=== PATIENT | female | born 1980 | race Caucasian/White ===

== ENCOUNTER 2017-09-19 07:28 | Emergency (ER) | payer MEDICARE ==
[~2017-09-19] VITALS: Ht 175.3 cm; Wt 67.1 kg
[~2017-09-19 07:28] MED LIST: MINOCYCLINE 10100 MG PO; MOTRIN 600MG.600 MG PO; NAPROSYN500 M1 PO; NEURONTIN 300M300 MG PO; PERCOCET1 TAB PO; SEPTRA DS 800 M1 TAB PO; TRAMADOL50 M1 PO; VALIUM5 MG PO; ZOFRAN ODT4 MG PO
--- OUTSIDE RECORDS SUMMARY | 2017-09-19 07:53 | External Medical Summary Rpt | CCD ---
Author Author , ROSANNA MARTE Address Unknown Phone [email or web address] Purpose Continuity of Care Document - 05-16-2012 through 2016 Results Labs Lab Lab Date Result Refere Interp Status Commen Order Detail nces retati t Range on Lipase measurement (09-17-2017 13:15) Lipase = 113 73-393 complet measure 017 U/L ed ment 13:15 Comprehensive metabolic panel (09-17-2017 13:15) ALT 09-17-2 = 13 12-78 complet (SGPT) 017 U/L ed ser/tin 13:15 s Serum = 137 136-145 complet sodium 017 mmoL/L ed measure 13:15 ment Serum = 3.9 3.5-5.1 complet potassi 017 mmoL/L ed um 13:15 measure ment Serum 2 = 4.8 1.3-3.2 complet globuli 017 gm/dL ed n 13:15 measure ment (mass/v olume) Estimat 2 = 62 59- complet ed 017 ML/MIN ed glomeru 13:15 lar filtrat ion rate (GF Estimat = 80 50-200 complet ion of 017 ML/MIN ed creatin 13:15 ine renal clearan ce Serum 2 = 1.0 0.55-1. complet or 017 mg/dL 02 ed plasma 13:15 creatin ine measure ment ( Carbon = 27 21.0-32 complet dioxide 017 mmoL/L .0 ed 13:15 measure ment Serum 2 = 100 98-107 complet or 017 mmoL/L ed plasma 13:15 chlorid e measure ment (mo Serum 2 = 10.0 8.5-10. complet or 017 mg/dL 1 ed plasma 13:15 calcium measure ment (mas Serum 2 = 12 7-18 complet or 017 mg/dL ed plasma 13:15 urea nitroge n measure men Serum = 0.5 0.2-1.0 complet or 017 mg/dL ed plasma 13:15 total bilirub in measure m Serum = 107 46-116 complet or 017 U/L ed plasma 13:15 alkalin e phospha tase nando Serum = 4.5 3.4-5.0 complet or 017 gm/dL ed plasma 13:15 albumin measure ment (mas Serum = 0.9 1.1-1.8 complet or 017 ed plasma 13:15 albumin /globul in mass ra Serum = 10 15-37 complet or 017 U/L ed plasma 13:15 asparta te aminotr ansfera Serum = 108 74-106 complet or 017 mg/dL ed plasma 13:15 glucose measure ment (mas Protein = 9.3 6.4-8.2 complet total 017 gm/dL ed ser/tin 13:15 s CBC w auto diff (09-17-2017 13:15) Mean = 29.4 27-31.2 complet corpusc 017 pg ed ular 13:15 hemoglo bin (MCH) determ Lymphoc = 17.9 10-50.0 complet yte 017 % ed count, 13:15 blood, automat ed Absolut = 1.9 0.7-4.5 complet e 017 K/mm3 ed lymphoc 13:15 yte count Blood = 15.4 12.2-16 complet hemoglo 017 g/dL .2 ed bin 13:15 measure ment (mass/v olum Blood = 47.5 37.0-47 complet hematoc 017 % .0 ed rit 13:15 (volume fractio n) Granulo = 77.2 37.0-80 complet cyte 017 % .0 ed percent 13:15 age Blood = 8.3 1.8-7.8 complet granulo 017 K/mm3 ed cytes 13:15 automat ed count (numb Automat = 0.5 % 0.1-12. complet ed 017 0 ed blood 13:15 eosinop hils/10 0 leukocy t Automat 09-17-2 = 0.1 0.0-0.4 complet ed 017 K/mm3 ed blood 13:15 eosinop hil count Baso % 09-17-2 = 0.5 % 0.1-2.0 complet 017 ed 13:15 Blood 09-17-2 = 10.7 4.8-10. complet leukocy 017 K/MM3 8 ed lance 13:15 count (number /volume ) Automat 09-17-2 = 12.9 11.5-17 complet ed 017 % .5 ed erythro 13:15 cyte distrib ution width Red 09-17-2 = 5.25 4.2-5.4 complet blood 017 M/mm3 ed cell 13:15 count Blood = 376 142-424 complet platele 017 K/mm3 ed t count 13:15 Automat 2 = 7.8 7.4-10. complet ed 017 fl 4 ed blood 13:15 platele t mean volume nando Banks % = 3.8 % 1.7-9.3 complet 017 ed 13:15 Absolut 2 = 0.4 0.1-1.0 complet e 017 K/mm3 ed monocyt 13:15 e count Automat = 90.5 82.2-97 complet ed 017 fl .8 ed erythro 13:15 cyte mean corpusc ular v Automat = 32.5 31.8-35 complet ed 017 g/dl .4 ed erythro 13:15 cyte mean corpusc ular h Automat 2 = 0.1 0-0.2 complet ed 017 K/MM3 ed blood 13:15 basophi l count (count/ vo HCG Preg Ur Ql (03-30-2017 18:10) B-HCG [id number] Negativ complet Preg Ur 017 09 e ed Ql 18:10 Negativ e SCT Bas Metab 2000 Pnl SerPl (03-30-2017 05:23) Comment: [employer] Guidelines Comment: Comment: Stage Description GFR Comment: 1 Normal or High 90+ Comment: 2 Mild decrease 60-89 Comment: 3 Moderate decrease 30-59 Comment: 4 Severe decrease 15-29 Comment: 5 Kidney failure <15 Anion 03-2 11.0 3.0-11. complet Gap3 017 mmol/L 0 ed SerPl-s 05:23 Cnc BUN/Cre 03-2 15.7 7.0-25. complet at 017 0 ed SerPl 05:23 GFR/BSA 03- 94 >60 complet .pred 017 mL/min/ ed SerPl 05:23 1.73 MDRD-Ar VRat Calcium 03 10.6 8.7-10. complet 017 mg/dL 4 ed XXX-sCn 05:23 c CO2 03-2 25.0 20.0-31 complet SerPl-s 017 mmol/L .0 ed Cnc 05:23 Chlorid 03- 102 99-109 complet e 017 mmol/L ed SerPl-s 05:23 Cnc Potassi 03-30-2 4.5 3.5-5.5 complet um 017 mmol/L ed Bld-sCn 05:23 c Sodium 03- 138 132-146 complet Bld-sCn 017 mmol/L ed c 05:23 Creat 03-2 0.70 0.60-1. complet Bld-mCn 017 mg/dL 30 ed c 05:23 BUN 03-2 11 9-23 complet Bld-mCn 017 mg/dL ed c 05:23 Glucose 03-2 101 70-100 complet 017 mg/dL ed Bld-mCn 05:23 c CBC W Diff pnl,unspecified Bld (03-30-2017 05:23) Imm 05-03-2 0.00 0.00-0. complet Granulo 017 10*3/mm 03 ed cytes # 05:23 3 Bld Basophi 0503-2 0.07 0.00-0. complet ls # 017 10*3/mm 20 ed Bld 05:23 3 Auto Eosinop 05-03-2 0.50 0.10-0. complet hil # 017 10*3/mm 30 ed Bld 05:23 3 Auto Monocyt 05-03-2 0.52 0.00-1. complet es # 017 10*3/mm 00 ed Bld 05:23 3 Auto Lymphoc -03-2 3.27 0.60-4. complet ytes # 017 10*3/mm 80 ed Bld 05:23 3 Auto Neutrop -03-2 2.92 1.50-8. complet hils # 017 10*3/mm 30 ed Bld 05:23 3 Auto Imm 03-2 0.0 % 0.0-0.6 complet Granulo 017 ed cytes/l 05:23 euk NFr Bld Basophi 03-30-2 1.0 % 0.0-1.0 complet ls/leuk 017 ed NFr 05:23 Bld Auto Eosinop 03-2 6.9 % 0.0-3.0 complet hil/bev 017 ed k NFr 05:23 Bld Auto Monocyt 03-2 7.1 % 0.0-12. complet es/leuk 017 0 ed NFr 05:23 Bld Auto Lymphoc 03-30-2 44.9 % 24.0-44 complet ytes/le 017 .0 ed uk NFr 05:23 Bld Auto Neutrop 03-30-2 40.1 % 41.0-71 complet hils/le 017 .0 ed uk NFr 05:23 Bld Auto Platele 03-30-2 325 150-450 complet t # Bld 017 10*3/mm ed Auto 05:23 3 PMV Bld 03-30-2 10.3 fL 6.0-12. complet Auto 017 0 ed 05:23 RDW RBC 03-2 52.0 fl 37.0-54 complet Auto 017 .0 ed 05:23 RDW RBC 03-2 14.8 % 11.3-14 complet 017 .5 ed Auto-Rt 05:23 o MCHC 03-2 31.7 32.0-36 complet RBC 017 g/dL .0 ed Auto-mC 05:23 nc MCH RBC 03-2 30.2 pg 27.0-31 complet Qn 017 .0 ed Auto 05:23 MCV RBC -03-2 95.0 fL 80.0-99 complet Auto 017 .0 ed 05:23 Hct VFr 03-2 47.9 % 34.5-44 complet Bld 017 .0 ed Auto 05:23 Hgb -03-2 15.2 11.5-15 complet Bld-mCn 017 g/dL .5 ed c 05:23 RBC # 05-03-2 5.04 3.89-5. complet Bld 017 10*6/mm 14 ed Auto 05:23 3 WBC 05-03-2 7.28 3.50-10 complet nRBC 017 10*3/mm .80 ed cor # 05:23 3 Bld Procalcitonin SerPl-mCnc (03-26-2017 07:15) Comment: As a Marker for Sepsis (Non-Neonates): Comment: 1. <0.5 ng/mL represents a low risk of severe sepsis and/or septic shock. Comment: 2. >2 ng/mL represents a high risk of severe sepsis and/or septic shock. Comment: Comment: As a Marker for Lower Respiratory Tract Infections that require antibiotic therapy: Comment: Comment: PCT on Admission Antibiotic Therapy 6-12 Hrs later Comment: > 0.5 Strongly Recommended Comment: >0.25 - <0.5 Recommended Comment: 0.1 - 0.25 Discouraged Remeasure/reassess PCT Comment: <0.1 Strongly Discouraged Remeasure/reassess PCT Comment: PCT values of < 0.5 ng/mL do not exclude an infection, because localized infections (without systemic signs) may be associated with such low concentrations, or a systemic infection in its initial stages (< 6 hours). Furthermore, increased PCT can occ Procalc < 0.05 complet itonin 017 ng/mL ed SerPl-m 07:15 Cnc Bas Metab 2000 Pnl SerPl (03-26-2017 07:15) Comment: [employer] Guidelines Comment: Comment: Stage Description GFR Comment: 1 Normal or High 90+ Comment: 2 Mild decrease 60-89 Comment: 3 Moderate decrease 30-59 Comment: 4 Severe decrease 15-29 Comment: 5 Kidney failure <15 BUN 6 mg/dL 9-23 complet Bld-mCn 017 ed c 07:15 Anion 5.0 3.0-11. complet Gap3 017 mmol/L 0 ed SerPl-s 07:15 Cnc BUN/Cre 10.0 7.0-25. complet at 017 0 ed SerPl 07:15 GFR/BSA 112 >60 complet .pred 017 mL/min/ ed SerPl 07:15 1.73 MDRD-Ar VRat Calcium 04-29-2 9.7 8.7-10. complet 017 mg/dL 4 ed XXX-sCn 07:15 c CO2 03-26-2 28.0 20.0-31 complet SerPl-s 017 mmol/L .0 ed Cnc 07:15 Chlorid 03-26-2 107 99-109 complet e 017 mmol/L ed SerPl-s 07:15 Cnc Potassi 2 4.1 3.5-5.5 complet um 017 mmol/L ed Bld-sCn 07:15 c Sodium 03-26-2 140 132-146 complet Bld-sCn 017 mmol/L ed c 07:15 Creat 03-26-2 0.60 0.60-1. complet Bld-mCn 017 mg/dL 30 ed c 07:15 Glucose 03-26-2 91 70-100 complet 017 mg/dL ed Bld-mCn 07:15 c CBC W Diff pnl,unspecified Bld (03-26-2017 07:14) Imm -29-2 0.00 0.00-0. complet Granulo 017 10*3/mm 03 ed cytes # 07:14 3 Bld Basophi 29-2 0.04 0.00-0. complet ls # 017 10*3/mm 20 ed Bld 07:14 3 Auto Eosinop 29-2 0.31 0.10-0. complet hil # 017 10*3/mm 30 ed Bld 07:14 3 Auto Monocyt 29-2 0.56 0.00-1. complet es # 017 10*3/mm 00 ed Bld 07:14 3 Auto Lymphoc 03-26-2 2.76 0.60-4. complet ytes # 017 10*3/mm 80 ed Bld 07:14 3 Auto Neutrop -29-2 3.32 1.50-8. complet hils # 017 10*3/mm 30 ed Bld 07:14 3 Auto Imm -29-2 0.0 % 0.0-0.6 complet Granulo 017 ed cytes/l 07:14 euk NFr Bld Basophi -29-2 0.6 % 0.0-1.0 complet ls/leuk 017 ed NFr 07:14 Bld Auto Eosinop 29-2 4.4 % 0.0-3.0 complet hil/bev 017 ed k NFr 07:14 Bld Auto Monocyt 8.0 % 0.0-12. complet es/leuk 017 0 ed NFr 07:14 Bld Auto Lymphoc 39.5 % 24.0-44 complet ytes/le 017 .0 ed uk NFr 07:14 Bld Auto Neutrop 47.5 % 41.0-71 complet hils/le 017 .0 ed uk NFr 07:14 Bld Auto Platele 298 150-450 complet t # Bld 017 10*3/mm ed Auto 07:14 3 PMV Bld 10.2 fL 6.0-12. complet Auto 017 0 ed 07:14 RDW RBC 54.0 fl 37.0-54 complet Auto 017 .0 ed 07:14 RDW RBC 15.4 % 11.3-14 complet 017 .5 ed Auto-Rt 07:14 o MCHC 31.2 32.0-36 complet RBC 017 g/dL .0 ed Auto-mC 07:14 nc MCH RBC 29.7 pg 27.0-31 complet Qn 017 .0 ed Auto 07:14 MCV RBC 95.2 fL 80.0-99 complet Auto 017 .0 ed 07:14 Hct VFr 39.8 % 34.5-44 complet Bld 017 .0 ed Auto 07:14 Hgb 03-26- 12.4 11.5-15 complet Bld-mCn 017 g/dL .5 ed c 07:14 RBC # 03-26-2 4.18 3.89-5. complet Bld 017 10*6/mm 14 ed Auto 07:14 3 WBC 03-26- 6.99 3.50-10 complet nRBC 017 10*3/mm .80 ed cor # 07:14 3 Bld UA Microscopic Pnl # Ur Auto (03-25-2017 23:15) Ref lab Automat complet test 017 ed ed method 23:15 Microsc opy Hyaline 0-6 0-6 complet Casts 017 /LPF ed Ur Ql 23:15 Auto Squamou 3-6 None complet s 017 /HPF Seen, ed #/area 23:15 0-2 UrnS HPF Bacteri [id number] None complet a Ur Ql 017 00 Not Seen, ed Auto 23:15 detecte Trace d SCT /HPF WBC Ur 0-2 None complet Ql Auto 017 /HPF Seen ed 23:15 RBC # 3-6 None complet Ur 017 /HPF Seen, ed 23:15 0-2 Bacteria Bld Cult (03-25-2017 20:19) Bacteri No complet a XXX 017 growth ed Aerobe 20:19 at 5 Cult days ESR Bld Qn (03-25-2017 14:20) ESR Bld 25 0-20 complet Qn 017 mm/hr ed 14:20 Comp Metab 1998 Pnl SerPl (03-25-2017 14:20) Comment: [employer] Guidelines Comment: Comment: Stage Description GFR Comment: 1 Normal or High 90+ Comment: 2 Mild decrease 60-89 Comment: 3 Moderate decrease 30-59 Comment: 4 Severe decrease 15-29 Comment: 5 Kidney failure <15 Anion 9.0 3.0-11. complet Gap3 017 mmol/L 0 ed SerPl-s 14:20 Cnc BUN/Cre 10.0 7.0-25. complet at 017 0 ed SerPl 14:20 Albumin 1.3 1.5-2.5 complet /Glob 017 g/dL ed SerPl 14:20 Globuli 3.8 complet n Ur 017 gm/dL ed Elph-mC 14:20 nc GFR/BSA 94 >60 complet .pred 017 mL/min/ ed SerPl 14:20 1.73 MDRD-Ar VRat Bilirub 0.6 0.3-1.2 complet 017 mg/dL ed SerPl-m 14:20 Cnc ALP 86 U/L 25-100 complet SerPl-c 017 ed Cnc 14:20 AST 25 U/L 0-33 complet SerPl-c 017 ed Cnc 14:20 ALT 20 U/L 7-40 complet SerPl w 017 ed 14:20 P-5'-P- cCnc Albumin 5.00 3.20-4. complet 017 g/dL 80 ed SerPl-m 14:20 Cnc Prot 8.8 5.7-8.2 complet SerPl-m 017 g/dL ed Cnc 14:20 Calcium 10.9 8.7-10. complet 017 mg/dL 4 ed XXX-sCn 14:20 c CO2 23.0 20.0-31 complet SerPl-s 017 mmol/L .0 ed Cnc 14:20 Chlorid 104 99-109 complet e 017 mmol/L ed SerPl-s 14:20 Cnc Potassi 3.3 3.5-5.5 complet um 017 mmol/L ed Bld-sCn 14:20 c Sodium 136 132-146 complet Bld-sCn 017 mmol/L ed c 14:20 Creat 2 0.70 0.60-1. complet Bld-mCn 017 mg/dL 30 ed c 14:20 BUN 7 mg/dL 9-23 complet Bld-mCn 017 ed c 14:20 Glucose 92 70-100 complet 017 mg/dL ed Bld-mCn 14:20 c CRP SerPl-mCnc (03-25-2017 14:20) CRP 03-25-2 0.31 0.00-1. complet SerPl-m 017 mg/dL 00 ed Cnc 14:20 CBC W Diff pnl,unspecified Bld (03-25-2017 14:20) Imm 03-25-2 0.03 0.00-0. complet Granulo 017 10*3/mm 03 ed cytes # 14:20 3 Bld Basophi 03-25-2 0.07 0.00-0. complet ls # 017 10*3/mm 20 ed Bld 14:20 3 Auto Eosinop 03-25-2 0.08 0.10-0. complet hil # 017 10*3/mm 30 ed Bld 14:20 3 Auto Monocyt 03-25-2 0.67 0.00-1. complet es # 017 10*3/mm 00 ed Bld 14:20 3 Auto Lymphoc 03-25-2 2.64 0.60-4. complet ytes # 017 10*3/mm 80 ed Bld 14:20 3 Auto Neutrop 03-25-2 12.71 1.50-8. complet hils # 017 10*3/mm 30 ed Bld 14:20 3 Auto Imm 03-25-2 0.2 % 0.0-0.6 complet Granulo 017 ed cytes/l 14:20 euk NFr Bld Basophi 0.4 % 0.0-1.0 complet ls/leuk 017 ed NFr 14:20 Bld Auto Eosinop 0.5 % 0.0-3.0 complet hil/bev 017 ed k NFr 14:20 Bld Auto Monocyt 4.1 % 0.0-12. complet es/leuk 017 0 ed NFr 14:20 Bld Auto Lymphoc 16.3 % 24.0-44 complet ytes/le 017 .0 ed uk NFr 14:20 Bld Auto Neutrop 78.5 % 41.0-71 complet hils/le 017 .0 ed uk NFr 14:20 Bld Auto Platele 382 150-450 complet t # Bld 017 10*3/mm ed Auto 14:20 3 PMV Bld 9.9 fL 6.0-12. complet Auto 017 0 ed 14:20 RDW RBC 51.0 fl 37.0-54 complet Auto 017 .0 ed 14:20 RDW RBC 15.0 % 11.3-14 complet 017 .5 ed Auto-Rt 14:20 o MCHC 32.9 32.0-36 complet RBC 017 g/dL .0 ed Auto-mC 14:20 nc MCH RBC 30.5 pg 27.0-31 complet Qn 017 .0 ed Auto 14:20 MCV RBC 92.9 fL 80.0-99 complet Auto 017 .0 ed 14:20 Hct VFr 42.9 % 34.5-44 complet Bld 017 .0 ed Auto 14:20 Hgb 14.1 11.5-15 complet Bld-mCn 017 g/dL .5 ed c 14:20 RBC # 03-25- 4.62 3.89-5. complet Bld 017 10*6/mm 14 ed Auto 14:20 3 WBC 03-25- 16.20 3.50-10 complet nRBC 017 10*3/mm .80 ed cor # 14:20 3 Bld Bacteria Ur Cult (03-19-2017 07:05) Bacteri [id number] complet a XXX 017 9 ed Aerobe 07:05 Normal Cult snatos SCT Comment: 30,000-40,000 CFU/mL Normal Urogenital Santos ESR Bld Qn (03-19-2017 07:05) ESR Bld 71 0-20 complet Qn 017 mm/hr ed 07:05 CBC W Diff pnl,unspecified Bld (03-19-2017 07:05) Imm 03-19-2 0.03 0.00-0. complet Granulo 017 10*3/mm 03 ed cytes # 07:05 3 Bld Basophi 2 0.02 0.00-0. complet ls # 017 10*3/mm 20 ed Bld 07:05 3 Auto Eosinop 03-19-2 0.11 0.10-0. complet hil # 017 10*3/mm 30 ed Bld 07:05 3 Auto Monocyt 03-19-2 0.59 0.00-1. complet es # 017 10*3/mm 00 ed Bld 07:05 3 Auto Lymphoc 03-19-2 2.13 0.60-4. complet ytes # 017 10*3/mm 80 ed Bld 07:05 3 Auto Neutrop 03-19-2 4.36 1.50-8. complet hils # 017 10*3/mm 30 ed Bld 07:05 3 Auto Imm 03-19-2 0.4 % 0.0-0.6 complet Granulo 017 ed cytes/l 07:05 euk NFr Bld Basophi 03-19-2 0.3 % 0.0-1.0 complet ls/leuk 017 ed NFr 07:05 Bld Auto Eosinop 03-19-2 1.5 % 0.0-3.0 complet hil/bev 017 ed k NFr 07:05 Bld Auto Monocyt 8.1 % 0.0-12. complet es/leuk 017 0 ed NFr 07:05 Bld Auto Lymphoc 29.4 % 24.0-44 complet ytes/le 017 .0 ed uk NFr 07:05 Bld Auto Neutrop 60.3 % 41.0-71 complet hils/le 017 .0 ed uk NFr 07:05 Bld Auto Platele 323 150-450 complet t # Bld 017 10*3/mm ed Auto 07:05 3 PMV Bld 10.8 fL 6.0-12. complet Auto 017 0 ed 07:05 RDW RBC 51.1 fl 37.0-54 complet Auto 017 .0 ed 07:05 RDW RBC 15.0 % 11.3-14 complet 017 .5 ed Auto-Rt 07:05 o MCHC 32.8 32.0-36 complet RBC 017 g/dL .0 ed Auto-mC 07:05 nc MCH RBC 30.5 pg 27.0-31 complet Qn 017 .0 ed Auto 07:05 MCV RBC 92.7 fL 80.0-99 complet Auto 017 .0 ed 07:05 Hct VFr 47.2 % 34.5-44 complet Bld 017 .0 ed Auto 07:05 Hgb 15.5 11.5-15 complet Bld-mCn 017 g/dL .5 ed c 07:05 RBC # 03-19-2 5.09 3.89-5. complet Bld 017 10*6/mm 14 ed Auto 07:05 3 WBC 03-19-2 7.24 3.50-10 complet nRBC 017 10*3/mm .80 ed cor # 07:05 3 Bld UA Dipstick Pnl Ur (03-19-2017 07:05) Urobili 03-19-2 0.2 0.2 - complet nogen 017 E.U./dL 1.0 ed Ur Ql 07:05 E.U./dL Strip Nitrite [id number] Negativ complet Ur Ql 017 09 e ed Strip 07:05 Negativ e SCT Leukocy [id number] Negativ complet te 017 00 e ed esteras 07:05 Moderat e Ur Ql e number Strip.a SCT uto Prot Ur [id number] Negativ complet Ql 017 09 e ed Strip 07:05 Negativ e SCT Hgb Ur [id number] Negativ complet Ql 017 09 e ed Strip.a 07:05 Negativ uto e SCT Bilirub [id number] Negativ complet Ur Ql 017 09 e ed Strip 07:05 Negativ e SCT Ketones [id number] Negativ complet Ur Ql 017 09 e ed Strip 07:05 Negativ e SCT Glucose [id number] Negativ complet Ur 017 09 e ed Strip-m 07:05 Negativ Cnc e SCT Sp Gr 1.014 1.001-1 complet Ur 017 .030 ed Strip 07:05 pH Ur 6.0 5.0-8.0 complet Strip.a 017 ed uto 07:05 Clarity [id number] Clear complet Ur 017 5 ed 07:05 Cloudy SCT Color [id number] Yellow, complet Ur 017 09 Straw ed 07:05 Yellow color SCT UA Microscopic Pnl # Ur Auto (03-19-2017 07:05) Ref lab Manual complet test 017 Light ed method 07:05 Microsc opy Trichom [id number] None complet onas 017 04 Seen ed #/area 07:05 Small UrnS SCT HPF /HPF Hyaline 7-12 0-6 complet Casts 017 /LPF ed Ur Ql 07:05 Auto Yeast Small/1 None complet UrnS Ql 017 + Yeast Seen ed Micro 07:05 /HPF Squamou 3-6 None complet s 017 /HPF Seen, ed #/area 07:05 0-2 UrnS HPF Bacteri [id number] None complet a Ur Ql 017 00 Not Seen, ed Auto 07:05 detecte Trace d SCT /HPF WBC Ur 31-50 None complet Ql Auto 017 /HPF Seen ed 07:05 RBC # 0-2 None complet Ur 017 /HPF Seen, ed 07:05 0-2 Comp Metab 1998 Pnl SerPl (03-19-2017 07:05) Comment: National Kid[employer] Guidelines Comment: Comment: Stage Description GFR Comment: 1 Normal or High 90+ Comment: 2 Mild decrease 60-89 Comment: 3 Moderate decrease 30-59 Comment: 4 Severe decrease 15-29 Comment: 5 Kidney failure <15 Sodium 136 132-146 complet Bld-sCn 017 mmol/L ed c 07:05 Creat 0.70 0.60-1. complet Bld-mCn 017 mg/dL 30 ed c 07:05 BUN 8 mg/dL 9-23 complet Bld-mCn 017 ed c 07:05 Glucose 97 70-100 complet 017 mg/dL ed Bld-mCn 07:05 c Anion 8.0 3.0-11. complet Gap3 017 mmol/L 0 ed SerPl-s 07:05 Cnc BUN/Cre 11.4 7.0-25. complet at 017 0 ed SerPl 07:05 Albumin 1.3 1.5-2.5 complet /Glob 017 g/dL ed SerPl 07:05 Globuli 3.9 complet n Ur 017 gm/dL ed Elph-mC 07:05 nc GFR/BSA 94 >60 complet .pred 017 mL/min/ ed SerPl 07:05 1.73 MDRD-Ar VRat Bilirub 0.8 0.3-1.2 complet 017 mg/dL ed SerPl-m 07:05 Cnc ALP 80 U/L 25-100 complet SerPl-c 017 ed Cnc 07:05 AST 26 U/L 0-33 complet SerPl-c 017 ed Cnc 07:05 ALT 20 U/L 7-40 complet SerPl w 017 ed 07:05 P-5'-P- cCnc Albumin 5.10 3.20-4. complet 017 g/dL 80 ed SerPl-m 07:05 Cnc Prot 9.0 5.7-8.2 complet SerPl-m 017 g/dL ed Cnc 07:05 Calcium 10.8 8.7-10. complet 017 mg/dL 4 ed XXX-sCn 07:05 c CO2 25.0 20.0-31 complet SerPl-s 017 mmol/L .0 ed Cnc 07:05 Chlorid 103 99-109 complet e 017 mmol/L ed SerPl-s 07:05 Cnc Potassi 3.9 3.5-5.5 complet um 017 mmol/L ed Bld-sCn 07:05 c CRP SerPl-mCnc (03-19-2017 07:05) CRP 0.49 0.00-1. complet SerPl-m 017 mg/dL 00 ed Cnc 07:05 HCG Preg Ur Ql (03-12-2017 11:14) B-HCG [id number] Negativ complet Preg Ur 017 09 e ed Ql 11:14 Negativ e SCT Bacteria Ur Cult (03-12-2017 07:45) Bacteri [id number] complet a XXX 017 9 ed Aerobe 07:45 Normal Cult santos SCT Comment: 50,000-60,000 CFU/mL Normal Urogenital Santos UA Microscopic Pnl # Ur Auto (03-12-2017 07:45) Ref lab Manual complet test 017 Light ed method 07:45 Microsc opy Mucous Moderat None complet Threads 017 e/2+ Seen, ed UrnS 07:45 /HPF Trace Ql Micro Hyaline None 0-6 complet Casts 017 Seen ed Ur Ql 07:45 /LPF Auto Squamou 7-12 None complet s 017 /HPF Seen, ed #/area 07:45 0-2 UrnS HPF Bacteri [id number] None complet a Ur Ql 017 00 Not Seen, ed Auto 07:45 detecte Trace d SCT /HPF WBC Ur Too None complet Ql Auto 017 Numerou Seen ed 07:45 s to Count /HPF RBC # 03-12- 3-6 None complet Ur 017 /HPF Seen, ed 07:45 0-2 UA Dipstick Pnl Ur (03-12-2017 07:45) Urobili 1.0 0.2 - complet nogen 017 E.U./dL 1.0 ed Ur Ql 07:45 E.U./dL Strip Nitrite [id number] Negativ complet Ur Ql 017 09 e ed Strip 07:45 Negativ e SCT Leukocy [id number] Negativ complet te 017 00 e ed esteras 07:45 Moderat e Ur Ql e number Strip.a SCT uto Prot Ur [id number] Negativ complet Ql 017 06 e ed Strip 07:45 Trace SCT Hgb Ur [id number] Negativ complet Ql 017 09 e ed Strip.a 07:45 Negativ uto e SCT Bilirub [id number] Negativ complet Ur Ql 017 09 e ed Strip 07:45 Negativ e SCT Ketones [id number] Negativ complet Ur Ql 017 09 e ed Strip 07:45 Negativ e SCT Glucose [id number] Negativ complet Ur 017 09 e ed Strip-m 07:45 Negativ Cnc e SCT Sp Gr 1.022 1.001-1 complet Ur 017 .030 ed Strip 07:45 pH Ur 6.0 5.0-8.0 complet Strip.a 017 ed uto 07:45 Clarity [id number] Clear complet Ur 017 5 ed 07:45 Cloudy SCT Color [id number] Yellow, complet Ur 017 09 Straw ed 07:45 Yellow color SCT Drugs Ur Scn (03-12-2017 07:45) Comment: Cutoff For Drugs Screened: Comment: Comment: Amphetamines 500 ng/ml Comment: Barbiturates 200 ng/ml Comment: Benzodiazepines 150 ng/ml Comment: Cocaine 150 ng/ml Comment: Methadone 200 ng/ml Comment: Opiates 100 ng/ml Comment: Phencyclidine 25 ng/ml Comment: THC 50 ng/ml Comment: Methamphetamine 500 ng/ml Comment: Tricyclic Antidepressants 300 ng/ml Comment: Oxycodone 100 ng/ml Comment: Propoxyphene 300 ng/ml Comment: Buprenorphine 10 ng/ml Comment: Comment: The normal value for all drugs tested is negative. This report includes unconfirmed screening results, with the cutoff values listed, to be used for medical treatment purposes only. Unconfirmed results must not be used for non-medical purposes such Bupreno [id number] Negativ complet rphine 017 09 e ed SerPl-m 07:45 Negativ Cnc e SCT Propoxy [id number] Negativ complet ph Ur 017 09 e ed Ql 07:45 Negativ e SCT Oxycodo [id number] Negativ complet ne Ur 017 09 e ed Ql Scn 07:45 Negativ e SCT Barbitu 0558281 Negativ complet rates 017 09 e ed Ur Ql 07:45 Negativ Scn e SCT Methado [id number] Negativ complet ne Ur 017 09 e ed Ql Scn 07:45 Negativ e SCT Tricycl 4053520 Negativ complet ics Ur 017 09 e ed Ql Scn 07:45 Negativ e SCT Benzodi 5682529 Negativ complet az Ur 017 4 e ed Ql Scn 07:45 Positiv e SCT Amphet+ 0543819 Negativ complet Methamp 017 09 e ed het Ur 07:45 Negativ Ql e SCT Opiates 5651516 Negativ complet Ur Ql 017 4 e ed 07:45 Positiv e SCT Ampheta 6902639 Negativ complet mines 017 09 e ed Ur Ql 07:45 Negativ e SCT Cocaine 8596164 Negativ complet Ur Ql 017 09 e ed 07:45 Negativ e SCT PCP Ur 2693261 Negativ complet Ql Scn 017 09 e ed 07:45 Negativ e SCT Cannabi 9049072 Negativ complet noids 017 4 e ed SerPl 07:45 Positiv Ql e SCT Comp Metab 1998 Pnl SerPl (03-12-2017 07:04) Comment: [employer] Guidelines Comment: Comment: Stage Description GFR Comment: 1 Normal or High 90+ Comment: 2 Mild decrease 60-89 Comment: 3 Moderate decrease 30-59 Comment: 4 Severe decrease 15-29 Comment: 5 Kidney failure <15 Anion 5.0 3.0-11. complet Gap3 017 mmol/L 0 ed SerPl-s 07:04 Cnc BUN/Cre 8.8 7.0-25. complet at 017 0 ed SerPl 07:04 Albumin 1.3 1.5-2.5 complet /Glob 017 g/dL ed SerPl 07:04 Globuli 3.7 complet n Ur 017 gm/dL ed Elph-mC 07:04 nc GFR/BSA 80 >60 complet .pred 017 mL/min/ ed SerPl 07:04 1.73 MDRD-Ar VRat Bilirub 0.3 0.3-1.2 complet 017 mg/dL ed SerPl-m 07:04 Cnc ALP 85 U/L 25-100 complet SerPl-c 017 ed Cnc 07:04 AST 24 U/L 0-33 complet SerPl-c 017 ed Cnc 07:04 ALT 19 U/L 7-40 complet SerPl w 017 ed 07:04 P-5'-P- cCnc Albumin 4.90 3.20-4. complet 017 g/dL 80 ed SerPl-m 07:04 Cnc Prot 8.6 5.7-8.2 complet SerPl-m 017 g/dL ed Cnc 07:04 Calcium 10.4 8.7-10. complet 017 mg/dL 4 ed XXX-sCn 07:04 c CO2 28.0 20.0-31 complet SerPl-s 017 mmol/L .0 ed Cnc 07:04 Chlorid 106 99-109 complet e 017 mmol/L ed SerPl-s 07:04 Cnc Potassi 3.6 3.5-5.5 complet um 017 mmol/L ed Bld-sCn 07:04 c Sodium 139 132-146 complet Bld-sCn 017 mmol/L ed c 07:04 Creat 0.80 0.60-1. complet Bld-mCn 017 mg/dL 30 ed c 07:04 BUN 04-15-2 7 mg/dL 9-23 complet Bld-mCn 017 ed c 07:04 Glucose 15-2 70 70-100 complet 017 mg/dL ed Bld-mCn 07:04 c CBC W Diff pnl,unspecified Bld (03-12-2017 07:04) Imm -15-2 0.04 0.00-0. complet Granulo 017 10*3/mm 03 ed cytes # 07:04 3 Bld Basophi 0.06 0.00-0. complet ls # 017 10*3/mm 20 ed Bld 07:04 3 Auto Eosinop 0.17 0.10-0. complet hil # 017 10*3/mm 30 ed Bld 07:04 3 Auto Monocyt 03-12- 0.73 0.00-1. complet es # 017 10*3/mm 00 ed Bld 07:04 3 Auto Lymphoc 3.19 0.60-4. complet ytes # 017 10*3/mm 80 ed Bld 07:04 3 Auto Neutrop 6.20 1.50-8. complet hils # 017 10*3/mm 30 ed Bld 07:04 3 Auto Imm 0.4 % 0.0-0.6 complet Granulo 017 ed cytes/l 07:04 euk NFr Bld Basophi 0.6 % 0.0-1.0 complet ls/leuk 017 ed NFr 07:04 Bld Auto Eosinop 1.6 % 0.0-3.0 complet hil/bev 017 ed k NFr 07:04 Bld Auto Monocyt 7.0 % 0.0-12. complet es/leuk 017 0 ed NFr 07:04 Bld Auto Lymphoc 30.7 % 24.0-44 complet ytes/le 017 .0 ed uk NFr 07:04 Bld Auto Neutrop 59.7 % 41.0-71 complet hils/le 017 .0 ed uk NFr 07:04 Bld Auto Platele 321 150-450 complet t # Bld 017 10*3/mm ed Auto 07:04 3 PMV Bld 04-15-2 10.5 fL 6.0-12. complet Auto 017 0 ed 07:04 RDW RBC 15-2 50.6 fl 37.0-54 complet Auto 017 .0 ed 07:04 RDW RBC 15-2 14.8 % 11.3-14 complet 017 .5 ed Auto-Rt 07:04 o MCHC 15-2 32.3 32.0-36 complet RBC 017 g/dL .0 ed Auto-mC 07:04 nc MCH RBC 30.4 pg 27.0-31 complet Qn 017 .0 ed Auto 07:04 MCV RBC 03-12-2 94.1 fL 80.0-99 complet Auto 017 .0 ed 07:04 Hct VFr 15-2 46.5 % 34.5-44 complet Bld 017 .0 ed Auto 07:04 Hgb 15- 15.0 11.5-15 complet Bld-mCn 017 g/dL .5 ed c 07:04 RBC # 15-2 4.94 3.89-5. complet Bld 017 10*6/mm 14 ed Auto 07:04 3 WBC 15-2 10.39 3.50-10 complet nRBC 017 10*3/mm .80 ed cor # 07:04 3 Bld Procalcitonin [facility] (03-12-2017 07:04) Comment: As a Marker for Sepsis (Non-Neonates): Comment: 1. <0.5 ng/mL represents a low risk of severe sepsis and/or septic shock. Comment: 2. >2 ng/mL represents a high risk of severe sepsis and/or septic shock. Comment: Comment: As a Marker for Lower Respiratory Tract Infections that require antibiotic therapy: Comment: Comment: PCT on Admission Antibiotic Therapy 6-12 Hrs later Comment: > 0.5 Strongly Recommended Comment: >0.25 - <0.5 Recommended Comment: 0.1 - 0.25 Discouraged Remeasure/reassess PCT Comment: <0.1 Strongly Discouraged Remeasure/reassess PCT Comment: PCT values of < 0.5 ng/mL do not exclude an infection, because localized infections (without systemic signs) may be associated with such low concentrations, or a systemic infection in its initial stages (< 6 hours). Furthermore, increased PCT can occ Procalc < 0.05 complet itonin 017 ng/mL ed SerPl-m 07:04 Cnc ESR Bld Qn (03-12-2017 07:04) ESR Bld 27 0-20 complet Qn 017 mm/hr ed 07:04 CRP SerPl-mCnc (03-12-2017 07:04) CRP 0.04 0.00-1. complet SerPl-m 017 mg/dL 00 ed Cnc 07:04 Bacteria Bld Cult (10-02-2016 22:22) Bacteri No complet a XXX 016 growth ed Aerobe 22:22 at 5 Cult days Bacteria Bld Cult (10-02-2016 22:09) Bacteri No complet a XXX 016 growth ed Aerobe 22:09 at 5 Cult days ESR Bld Qn (10-02-2016 22:09) ESR Bld 81 0-20 complet Qn 016 mm/hr ed 22:09 Comp Metab 1998 Pnl SerPl (10-02-2016 22:09) Comment: [employer] Guidelines Comment: Comment: Stage Description GFR Comment: 1 Normal or High 90+ Comment: 2 Mild decrease 60-89 Comment: 3 Moderate decrease 30-59 Comment: 4 Severe decrease 15-29 Comment: 5 Kidney failure <15 Glucose 110 70-100 complet 016 mg/dL ed Bld-mCn 22:09 c Anion 6.0 3.0-11. complet Gap3 016 mmol/L 0 ed SerPl-s 22:09 Cnc BUN/Cre 11.7 7.0-25. complet at 016 0 ed SerPl 22: Albumin 1.1 complet /Glob 016 g/dL ed SerPl 22:09 Globuli 3.4 complet n Ur 016 gm/dL ed Elph-mC 22:09 nc GFR/BSA 112 >60 complet .pred 016 mL/min/ ed SerPl 22:09 1.73 MDRD-Ar VRat Bilirub 0.2 0.3-1.2 complet 016 mg/dL ed SerPl-m 22:09 Cnc ALP 11-05-2 62 U/L 25-100 complet SerPl-c 016 ed Cnc 22:09 AST 10-02-2 11 U/L 0-33 complet SerPl-c 016 ed Cnc 22:09 ALT 10-02-2 8 U/L 7-40 complet SerPl w 016 ed 22:09 P-5'-P- cCnc Albumin 3.80 3.20-4. complet 016 g/dL 80 ed SerPl-m 22:09 Cnc Prot 10-02- 7.2 5.7-8.2 complet SerPl-m 016 g/dL ed Cnc 22:09 Calcium 9.2 8.7-10. complet 016 mg/dL 4 ed XXX-sCn 22:09 c CO2 30.0 20.0-31 complet SerPl-s 016 mmol/L .0 ed Cnc 22:09 Chlorid 103 99-109 complet e 016 mmol/L ed SerPl-s 22:09 Cnc Potassi 3.5 3.5-5.5 complet um 016 mmol/L ed Bld-sCn 22:09 c Sodium 139 132-146 complet Bld-sCn 016 mmol/L ed c 22:09 Creat 0.60 0.60-1. complet Bld-mCn 016 mg/dL 30 ed c 22:09 BUN 10-02-2 7 mg/dL 9-23 complet Bld-mCn 016 ed c 22:09 CRP SerPl-mCnc (10-02-2016 22:09) CRP 05-2 64.80 0.00-10 complet SerPl-m 016 mg/dL .00 ed Cnc 22:09 CBC W Diff pnl,unspecified Bld (10-02-2016 22:09) Imm 10-02-2 0.02 0.00-0. complet Granulo 016 10*3/mm 03 ed cytes # 22:09 3 Bld Basophi 10-02-2 0.02 0.00-0. complet ls # 016 10*3/mm 20 ed Bld 22:09 3 Auto Eosinop 0.28 0.10-0. complet hil # 016 10*3/mm 30 ed Bld 22:09 3 Auto Monocyt 10-02-2 0.66 0.00-1. complet es # 016 10*3/mm 00 ed Bld 22:09 3 Auto Lymphoc 05-2 2.06 0.60-4. complet ytes # 016 10*3/mm 80 ed Bld 22:09 3 Auto Neutrop 10-02-2 5.15 1.50-8. complet hils # 016 10*3/mm 30 ed Bld 22:09 3 Auto Imm 10-02-2 0.2 % 0.0-0.6 complet Granulo 016 ed cytes 22:09 NFr Bld Basophi 10-02- 0.2 % 0.0-1.0 complet ls NFr 016 ed Bld 22:09 Auto Eosinop 10-02- 3.4 % 0.0-3.0 complet hil NFr 016 ed Bld 22:09 Auto Monocyt 10-02- 8.1 % 0.0-12. complet es NFr 016 0 ed Bld 22:09 Auto Lymphoc 10-02- 25.2 % 24.0-44 complet ytes 016 .0 ed NFr Bld 22:09 Auto Neutrop 62.9 % 41.0-71 complet hils 016 .0 ed NFr Bld 22:09 Auto Platele 368 150-450 complet t # Bld 016 10*3/mm ed Auto 22:09 3 PMV Bld 9.4 fL 6.0-12. complet Auto 016 0 ed 22:09 RDW RBC 10-02-2 42.8 fl 37.0-54 complet Auto 016 .0 ed 22:09 RDW RBC 05-2 12.9 % 11.3-14 complet 016 .5 ed Auto-Rt 22:09 o MCHC 10-02- 32.4 32.0-36 complet RBC 016 g/dL .0 ed Auto-mC 22:09 nc MCH RBC 10-02- 29.3 pg 27.0-31 complet Qn 016 .0 ed Auto 22:09 MCV RBC 10-02-2 90.5 fL 80.0-99 complet Auto 016 .0 ed 22:09 Hct VFr 10-02-2 32.4 % 34.5-44 complet Bld 016 .0 ed Auto 22:09 Hgb 05- 10.5 11.5-15 complet Bld-mCn 016 g/dL .5 ed c 22:09 RBC # 05-2 3.58 3.89-5. complet Bld 016 10*6/mm 14 ed Auto 22:09 3 WBC 10-02- 8.19 3.50-10 complet nRBC 016 10*3/mm .80 ed cor # 22:09 3 Bld UA Dipstick Pnl Ur (10-02-2016 21:17) Comment: Urine microscopic not indicated. Color [id number] Yellow, complet Ur 016 09 Straw ed 21:17 Yellow color SCT Urobili 0.2 0.2 complet nogen 016 E.U./dL E.U./dL ed Ur Ql 21:17 , 1.0 Strip E.U./dL Nitrite [id number] Negativ complet Ur Ql 016 09 e ed Strip 21:17 Negativ e SCT Leukocy [id number] Negativ complet te 016 09 e ed esteras 21:17 Negativ e Ur Ql e SCT Strip.a uto Prot Ur [id number] Negativ complet Ql 016 09 e ed Strip 21:17 Negativ e SCT Hgb Ur [id number] Negativ complet Ql 016 09 e ed Strip.a 21:17 Negativ uto e SCT Bilirub [id number] Negativ complet Ur Ql 016 09 e ed Strip 21:17 Negativ e SCT Ketones [id number] Negativ complet Ur Ql 016 09 e ed Strip 21:17 Negativ e SCT Glucose [id number] Negativ complet Ur 016 09 e ed Strip-m 21:17 Negativ Cnc e SCT Sp Gr 1.010 1.001-1 complet Ur 016 .030 ed Strip 21:17 pH Ur 6.0 5.0-8.0 complet Strip.a 016 ed uto 21:17 Clarity [id number] Clear complet Ur 016 02 ed 21:17 Turbid SCT PAIN MGMT DRUG SCREEN (10-22-2014 13:15) BARBITU 11-25-2 NEG NEGATIV complet RATES 014 (<200 E ed 13:15 ng/mL) OXYCODO 11-25-2 NEG NEGATIV complet NE 014 (<100 E ed 13:15 ng/mL) METHAMP 11-25-2 NEG NEGATIV complet HETAMIN 014 (<500 E ed E 13:15 ng/mL) PROPOXY 11-25-2 NEG NEGATIV complet PHENE 014 (<300 E ed 13:15 ng/mL) PHENCYC 11-25-2 NEG NEGATIV complet LIDINE 014 (<25 E ed 13:15 ng/mL) COCAINE 11-25-2 NEG NEGATIV complet 014 (<150 E ed 13:15 ng/mL) AMPHETA 11-25-2 NEG NEGATIV complet MINES 014 (<500 E ed 13:15 ng/mL) OPIATES 11-25-2 POSITIV NEGATIV complet 014 E E ed 13:15 Comment: THRESHOLD LIMIT IS 100 ng/mL THC 11-25-2 NEG NEGATIV complet (MARIJU 014 (<50 E ed ANDRE) 13:15 ng/mL) BENZODI 11-25-2 POSITIV NEGATIV complet AZEPINE 014 E E ed S 13:15 Comment: THRESHOLD LIMIT IS 150 ng/mL BUPRENO 11-25-2 NEG NEGATIV complet RPHINE 014 (<10 E ed 13:15 ng/mL) METHADO 11-25-2 NEG NEGATIV complet NE 014 (<200 E ed 13:15 ng/mL) TRICYCL 11-25-2 NEG NEGATIV complet IC 014 (<300 E ed ANTIDEP 13:15 ng/mL) RESSANT S PAIN MGMT DRUG SCREEN (04-16-2014 14:00) ADULTER 04-16-2 TNP >=20 Normal complet ANTS 014 mg/dL mg/dL ed URINE 14:00 CREATIN INE Comment: UNABLE TO READ ADULTACHECK STRIP BECAUSE OF COLOR OF URINE Comment: --- 04/16/141516 --- Comment: UR CREATININE previously reported as: Comment: Test not performed mg/dL ADULTER 04-16-2 TNP NEGATIV Normal complet ANT 014 E ed OXIDANT 14:00 S Comment: UNABLE TO READ ADULTACHECK STRIP BECAUSE OF COLOR OF UNINE Comment: --- 04/16/141515 --- Comment: ADULTERANT OXID previously reported as: Comment: Test not performed PAIN MGMT DRUG SCREEN (10-09-2013 14:50) COCAINE 11-12-2 NEG NEGATIV Normal complet 013 (<150 E ed 14:50 ng/mL) AMPHETA 11-12-2 NEG NEGATIV Normal complet MINES 013 (<500 E ed 14:50 ng/mL) OPIATES 11-12-2 POSITIV NEGATIV Abnorma complet 013 E E l ed 14:50 Comment: THRESHOLD LIMIT IS 100 ng/mL THC 11-12-2 NEG NEGATIV Normal complet (MARIJU 013 (<50 E ed ANDRE) 14:50 ng/mL) BENZODI 11-12-2 POSITIV NEGATIV Abnorma complet AZEPINE 013 E E l ed S 14:50 Comment: THRESHOLD LIMIT IS 150 ng/mL METHADO 11-12-2 NEG NEGATIV Normal complet NE 013 (<200 E ed 14:50 ng/mL) BARBITU 11-12-2 NEG NEGATIV Normal complet RATES 013 (<200 E ed 14:50 ng/mL) TRICYCL 11-12-2 NEG NEGATIV Normal complet IC 013 (<300 E ed ANTIDEP 14:50 ng/mL) RESSANT S BUPRENO 11-12-2 NEG NEGATIV Normal complet RPHINE 013 (<10 E ed 14:50 ng/mL) OXYCODO 11-12-2 NEG NEGATIV Normal complet NE 013 (<100 E ed 14:50 ng/mL) METHAMP 11-12-2 NEG NEGATIV Normal complet HETAMIN 013 (<500 E ed E 14:50 ng/mL) PROPOXY 11-12-2 NEG NEGATIV Normal complet PHENE 013 (<300 E ed 14:50 ng/mL) PHENCYC 11-12-2 NEG NEGATIV Normal complet LIDINE 013 (<25 E ed 14:50 ng/mL) PAIN MGMT DRUG SCREEN (09-25-2013 16:30) BUPRENO 10-29-2 NEG NEGATIV Normal complet RPHINE 013 (<10 E ed 16:30 ng/mL) OXYCODO 10-29-2 NEG NEGATIV Normal complet NE 013 (<100 E ed 16:30 ng/mL) METHAMP 10-29-2 NEG NEGATIV Normal complet HETAMIN 013 (<500 E ed E 16:30 ng/mL) PROPOXY 10-29-2 NEG NEGATIV Normal complet PHENE 013 (<300 E ed 16:30 ng/mL) PHENCYC 10-29-2 NEG NEGATIV Normal complet LIDINE 013 (<25 E ed 16:30 ng/mL) COCAINE 10-29-2 NEG NEGATIV Normal complet 013 (<150 E ed 16:30 ng/mL) AMPHETA 10-29-2 NEG NEGATIV Normal complet MINES 013 (<500 E ed 16:30 ng/mL) OPIATES 10-29-2 POSITIV NEGATIV Abnorma complet 013 E E l ed 16:30 Comment: THRESHOLD LIMIT IS 100 ng/mL THC 10-29-2 NEG NEGATIV Normal complet (MARIJU 013 (<50 E ed ANDRE) 16:30 ng/mL) BENZODI 10-29-2 POSITIV NEGATIV Abnorma complet AZEPINE 013 E E l ed S 16:30 Comment: THRESHOLD LIMIT IS 150 ng/mL METHADO 10-29-2 NEG NEGATIV Normal complet NE 013 (<200 E ed 16:30 ng/mL) BARBITU 10-29-2 NEG NEGATIV Normal complet RATES 013 (<200 E ed 16:30 ng/mL) TRICYCL 10-29-2 NEG NEGATIV Normal complet IC 013 (<300 E ed ANTIDEP 16:30 ng/mL) RESSANT S PAIN MGMT DRUG SCREEN (04-04-2013 12:04) ADULTER 04-04-2 NEGATIV NEGATIV Normal complet ANT 013 E E ed CHROMAT 12:04 E ADULTER 04-04-2 9.0 4-10 Normal complet ANT pH 013 ed 12:04 ADULTER 04-04-2 NEGATIV NEGATIV Normal complet ANTS 013 E E ed GLUTARA 12:04 LDEHYDE ADULTER -08-2 NEG <200 Normal complet ANTS 013 mcg/mL mcg/dL ed NITRITE 12:04 ADULTER 04-04-2 20 >=20 Normal complet ANTS 013 mg/dL mg/dL ed URINE 12:04 CREATIN INE ADULTER 04-04-2 NEGATIV NEGATIV Normal complet ANT 013 E E ed OXIDANT 12:04 S PAIN MGMT DRUG SCREEN (02-28-2013 13:54) Comment: CALL RESULTS TO MARLEN MCKOY TYSHAWN ADULTER 04-03-2 NEGATIV NEGATIV Normal complet ANT 013 E E ed CHROMAT 13:54 E ADULTER 04-03-2 9.0 4-10 Normal complet ANT pH 013 ed 13:54 ADULTER 04-03-2 NEGATIV NEGATIV Normal complet ANTS 013 E E ed GLUTARA 13:54 LDEHYDE ADULTER 04-03-2 NEG <200 Normal complet ANTS 013 mcg/mL mcg/dL ed NITRITE 13:54 ADULTER 04-03-2 20 >=20 Normal complet ANTS 013 mg/dL mg/dL ed URINE 13:54 CREATIN INE ADULTER 04-03-2 NEGATIV NEGATIV Normal complet ANT 013 E E ed OXIDANT 13:54 S PAIN MGMT DRUG SCREEN (01-01-2013 11:15) OPIATES 02-04-2 NEG NEGATIV Normal complet 013 (<100 E ed 11:15 ng/mL) THC 02-04-2 NEG NEGATIV Normal complet (MARIJU 013 (<50 E ed ANDRE) 11:15 ng/mL) BENZODI 02-04-2 POSITIV NEGATIV Abnorma complet AZEPINE 013 E E l ed S 11:15 Comment: THRESHOLD LIMIT IS 150 ng/mL METHADO 02-04-2 NEG NEGATIV Normal complet NE 013 (<200 E ed 11:15 ng/mL) TRICYCL 02-04-2 NEG NEGATIV Normal complet IC 013 (<300 E ed ANTIDEP 11:15 ng/mL) RESSANT S BUPRENO 02-04-2 NEG NEGATIV Normal complet RPHINE 013 (<10 E ed 11:15 ng/mL) OXYCODO 02-04-2 POSITIV NEGATIV Abnorma complet NE 013 E E l ed 11:15 Comment: THRESHOLD LIMIT IS 100 ng/mL METHAMP 02-04-2 NEG NEGATIV Normal complet HETAMIN 013 (<500 E ed E 11:15 ng/mL) PROPOXY 02-04-2 NEG NEGATIV Normal complet PHENE 013 (<25 E ed 11:15 ng/mL) PHENCYC 02-04-2 NEG NEGATIV Normal complet LIDINE 013 (<25 E ed 11:15 ng/mL) COCAINE 02-04-2 NEG NEGATIV Normal complet 013 (<150 E ed 11:15 ng/mL) AMPHETA 02-04-2 NEG NEGATIV Normal complet MINES 013 (<500 E ed 11:15 ng/mL) BARBITU NEG NEGATIV Normal complet RATES 013 (<200 E ed 11:15 ng/mL)
--- OUTSIDE RECORDS SUMMARY | 2017-09-19 07:53 | External Medical Summary Rpt | CCD ---
Author Author , ROSANNA MARTE Address Unknown Phone [email or web address] Purpose Continuity of Care Document - 05-16-2012 [...] blood 13:15 platele t mean volume n[place] % = 3.8 % 1.7-9.3 complet 017 [...] HCG Preg Ur Ql (03-30-2017 18:10) B-HCG [id number] Negativ complet Preg Ur 017 09 e [...] ed #/area 23:15 0-2 UrnS HPF Bacteri [id number] None complet a Ur Ql 017 00 [...] Bld Bacteria Ur Cult (03-19-2017 07:05) Bacteri [id number] complet a XXX 017 9 ed Aerobe 07:05 Normal Cult santos SCT Comment: 30,000-40,000 CFU/mL Normal Urogenital Santos [...] ed Ur Ql 07:05 E.U./dL Strip Nitrite [id number] Negativ complet Ur Ql 017 09 e ed Strip 07:05 Negativ e SCT Leukocy [id number] Negativ complet te 017 00 e ed esteras 07:05 Moderat e Ur Ql e number Strip.a SCT uto Prot Ur [id number] Negativ complet Ql 017 09 e ed Strip 07:05 Negativ e SCT Hgb Ur [id number] Negativ complet Ql 017 09 e ed Strip.a 07:05 Negativ uto e SCT Bilirub [id number] Negativ complet Ur Ql 017 09 e ed Strip 07:05 Negativ e SCT Ketones [id number] Negativ complet Ur Ql 017 09 e ed Strip 07:05 Negativ e SCT Glucose [id number] Negativ complet Ur 017 09 e ed Strip-m 07:05 Negativ Cnc e SCT Sp Gr 1.014 1.001-1 complet Ur 017 .030 ed Strip 07:05 pH Ur 6.0 5.0-8.0 complet Strip.a 017 ed uto 07:05 Clarity [id number] Clear complet Ur 017 5 ed 07:05 Cloudy SCT Color 4645935 Yellow, complet Ur 017 09 Straw ed 07:05 Yellow color SCT UA Microscopic Pnl # Ur Auto (03-19-2017 07:05) Ref lab Manual complet test 017 Light ed method 07:05 Microsc opy Trichom [id number] None complet onas 017 04 Seen ed #/area 07:05 Small UrnS SCT HPF /HPF Hyaline 7-12 0-6 complet Casts 017 /LPF ed Ur Ql 07:05 Auto Yeast Small/1 None complet UrnS Ql 017 + Yeast Seen ed Micro 07:05 /HPF Squamou 3-6 None complet s 017 /HPF Seen, ed #/area 07:05 0-2 UrnS HPF Bacteri [id number] None complet a Ur Ql 017 00 [...] HCG Preg Ur Ql (03-12-2017 11:14) B-HCG [id number] Negativ complet Preg Ur 017 09 e ed Ql 11:14 Negativ e SCT Bacteria Ur Cult (03-12-2017 07:45) Bacteri [id number] complet a XXX 017 9 ed Aerobe [...] ed #/area 07:45 0-2 UrnS HPF Bacteri [id number] None complet a Ur Ql 017 00 [...] ed Ur Ql 07:45 E.U./dL Strip Nitrite [id number] Negativ complet Ur Ql 017 09 e ed Strip 07:45 Negativ e SCT Leukocy 8531247 Negativ complet te 017 00 e ed esteras 07:45 Moderat e Ur Ql e number Strip.a SCT uto Prot Ur [id number] Negativ complet Ql 017 06 e ed Strip 07:45 Trace SCT Hgb Ur [id number] Negativ complet Ql 017 09 e ed Strip.a 07:45 Negativ uto e SCT Bilirub 5293052 Negativ complet Ur Ql 017 09 e ed Strip 07:45 Negativ e SCT Ketones 8523644 Negativ complet Ur Ql 017 09 e ed Strip 07:45 Negativ e SCT Glucose 8603799 Negativ complet Ur 017 09 e ed Strip-m 07:45 Negativ Cnc e SCT Sp Gr 1.022 1.001-1 complet Ur 017 .030 ed Strip 07:45 pH Ur 6.0 5.0-8.0 complet Strip.a 017 ed uto 07:45 Clarity [id number] Clear complet Ur 017 5 ed 07:45 Cloudy SCT Color 3473436 Yellow, complet Ur 017 09 Straw ed [...] be used for non-medical purposes such Bupreno [id number] Negativ complet rphine 017 09 e ed SerPl-m 07:45 Negativ Cnc e SCT Propoxy [id number] Negativ complet ph Ur 017 09 e ed Ql 07:45 Negativ e SCT Oxycodo 1536293 Negativ complet ne Ur 017 09 e ed Ql Scn 07:45 Negativ e SCT Barbitu 7396086 Negativ complet rates 017 09 e ed Ur Ql 07:45 Negativ Scn e SCT Methado 6555081 Negativ complet ne Ur 017 09 e ed Ql Scn 07:45 Negativ e SCT Tricycl 3925638 Negativ complet ics Ur 017 09 e ed Ql Scn 07:45 Negativ e SCT Benzodi 4388165 Negativ complet az Ur 017 4 e ed Ql Scn 07:45 Positiv e SCT Amphet+ 6042648 Negativ complet Methamp 017 09 e ed het Ur 07:45 Negativ Ql e SCT Opiates 8024944 Negativ complet Ur Ql 017 4 e ed 07:45 Positiv e SCT Ampheta 3779932 Negativ complet mines 017 09 e ed Ur Ql 07:45 Negativ e SCT Cocaine 2572260 Negativ complet Ur Ql 017 09 e ed 07:45 Negativ e SCT PCP Ur 8612619 Negativ complet Ql Scn 017 09 e ed 07:45 Negativ e SCT Cannabi 0727627 Negativ complet noids 017 4 e ed [...] ed cor # 07:04 3 Bld Procalcitonin [facility] (03-12-2017 07:04) Comment: As a Marker for [...] 21:17) Comment: Urine microscopic not indicated. Color [id number] Yellow, complet Ur 016 09 Straw ed 21:17 Yellow color SCT Urobili 0.2 0.2 complet nogen 016 E.U./dL E.U./dL ed Ur Ql 21:17 , 1.0 Strip E.U./dL Nitrite 2422376 Negativ complet Ur Ql 016 09 e ed Strip 21:17 Negativ e SCT Leukocy 3774422 Negativ complet te 016 09 e ed esteras 21:17 Negativ e Ur Ql e SCT Strip.a uto Prot Ur 4464009 Negativ complet Ql 016 09 e ed Strip 21:17 Negativ e SCT Hgb Ur 4518426 Negativ complet Ql 016 09 e ed Strip.a 21:17 Negativ uto e SCT Bilirub 8177949 Negativ complet Ur Ql 016 09 e ed Strip 21:17 Negativ e SCT Ketones 8513324 Negativ complet Ur Ql 016 09 e ed Strip 21:17 Negativ e SCT Glucose 3420379 Negativ complet Ur 016 09 e ed Strip-m 21:17 Negativ Cnc e SCT Sp Gr 1.010 1.001-1 complet Ur 016 .030 ed Strip 21:17 pH Ur 6.0 5.0-8.0 complet Strip.a 016 ed uto 21:17 Clarity [id number] Clear complet Ur 016 02 ed 21:17 [...]
--- OUTSIDE RECORDS SUMMARY | 2017-09-19 07:54 | External Medical Summary Rpt | CCD ---
Demographics Preferred Language B[place] Marital Status Unknown Nondenominational Affiliation Unknown Race Unknown Ethnic Group Unknown Author Author , ROSANNA MARTE Address Unknown Phone Immunization Unable to retrieve immunization data due to connection failure with Immunization Registry. Please try again later.
--- OUTSIDE RECORDS SUMMARY | 2017-09-19 07:54 | External Medical Summary Rpt ---
Author Author ROSANNA Castro, [employer] Organization [employer] Address Unknown Phone Unavailable Results Comprehensive metabolic 2000 panel in Serum or Plasma Observa Value Referen Units Interpr Notes Date tion ce etation Range Albumin/G 1.1 - 1.8 No Low No Sep 17 lobulin informati informati 2017 1:15 [Mass on in on in PM ratio] in source source Serum or data data Plasma Albumin 3.4 - 5.0 gm/dL Normal No Sep 17 [Mass/vol informati 2017 1:15 ume] in on in PM Serum or source Plasma data Alkaline 46 - 116 U/L Normal No Sep 17 phosphata informati 2017 1:15 se on in PM [Enzymati source c data activity/ volume] in Serum or Plasma Bilirubin 0.2 - 1.0 mg/dL Normal No Sep 17 .total informati 2016 1:15 [Mass/vol on in PM ume] in source Serum or data Plasma Urea 7 - 18 mg/dL Normal No Sep 17 nitrogen informati 2017 1:15 [Mass/vol on in PM ume] in source Serum or data Plasma Calcium 8.5 - mg/dL Normal No Sep 17 [Mass/vol 10.1 informati 2017 1:15 ume] in on in PM Serum or source Plasma data Chloride 98 - 107 mmoL/L Normal No Sep 17 [Moles/vo informati 2017 1:15 lume] in on in PM Serum or source Plasma data Carbon 21.0 - mmoL/L Normal No Sep 17 dioxide, 32.0 informati 2017 1:15 total on in PM [Moles/vo source lume] in data Serum or Plasma Creatinin 0.55 - mg/dL Normal No Sep 17 e 1.02 informati 2017 1:15 [Mass/vol on in PM ume] in source Serum or data Plasma Creatinin 50 - 200 ML/MIN Normal No Sep 17 e renal informati 2017 1:15 clearance on in PM source predicted data by Cockcroft -Gault formula Estimated 59- ML/MIN No REFERENCE Sep 17 informati RANGE: 2017 1:15 glomerula on in >60 PM r source ML/MIN/1. filtratio data 73 SQUARE n rate METERSIf (GF this patient is -A merican, then multiply theresult by 1.210. Globulin 1.3 - 3.2 gm/dL High No Sep 17 [Mass/vol informati 2016 1:15 ume] in on in PM Serum source data Glucose 74 - 106 mg/dL High No Sep 17 [Mass/vol informati 2016 1:15 ume] in on in PM Serum or source Plasma data Potassium 3.5 - 5.1 mmoL/L Normal No Sep 17 inform2016 1:15 [Moles/vo on in PM lume] in source Serum or data Plasma Sodium 136 - 145 mmoL/L Normal No Sep 17 [Moles/vo informati 2016 1:15 lume] in on in PM Serum or source Plasma data Aspartate 15 - 37 U/L Low No Sep 17 inform2016 1:15 aminotran on in PM sferase source [Enzymati data c activity/ volume] in Serum or Plasma Alanine 12 - 78 U/L Normal No Sep 17 aminotran 2016 1:15 sferase on in PM [Enzymati source c data activity/ volume] in Serum or Plasma Protein 6.4 - 8.2 gm/dL High No Sep 17 [Mass/vol informati 2016 1:15 ume] in on in PM Serum or source Plasma data Lipase [Enzymatic activity/volume] in Serum or Plasma Observa Value Referen Units Interpr Notes Date tion ce etation Range Lipase 73 - 393 U/L Normal No Sep 17 [Enzymati informati 2016 1:15 c on in PM activity/ source volume] data in Serum or Plasma CBC W Auto Differential panel in Blood Observa Value Referen Units Interpr Notes Date tion ce etation Range Basophils 0 - 0.2 K/MM3 Normal No Sep 17 inform2016 1:15 [#/volume on in PM ] in source Blood by data Automated count Basophils 0.1 - 2.0 % Normal No Sep 17 /100 informati 2016 1:15 leukocyte on in PM s in source Blood by data Automated count Eosinophi 0.0 - 0.4 K/mm3 Normal No Sep 17 ls ati 2016 1:15 [#/volume on in PM ] in source Blood by data Automated count Eosinophi 0.1 - % Normal No Sep 17 ls/100 12.0 informati 2016 1:15 leukocyte on in PM s in source Blood by data Automated count Granulocy 1.8 - 7.8 K/mm3 High No Sep 17 lance informati 2016 1:15 [#/volume on in PM ] in source Blood by data Automated count Granulocy 37.0 - % Normal No Sep 17 lance/100 80.0 informati 2016 1:15 leukocyte on in PM s in source Blood by data Automated count Hematocri 37.0 - % High No Sep 17 t [Volume 47.0 informati 2016 1:15 on in PM Fraction] source of Blood data Hemoglobi 12.2 - g/dL Normal No Sep 17 n 16.2 informati 2016 1:15 [Mass/vol on in PM ume] in source Blood data Lymphocyt 0.7 - 4.5 K/mm3 Normal No Sep 17 es informati 2016 1:15 [#/volume on in PM ] in source Unspecifi data ed specimen by Automated count Lymphocyt 10 - 50.0 % Normal No Sep 17 es informati 2016 1:15 [#/volume on in PM ] in source Unspecifi data ed specimen by Automated count Erythrocy 27 - 31.2 pg Normal No Sep 17 te mean informati 2016 1:15 corpuscul on in PM ar source hemoglobi data n [Entitic mass] Erythrocy 31.8 - g/dl Normal No Sep 17 te mean 35.4 informati 2016 1:15 corpuscul on in PM ar source hemoglobi data n concentra tion [Mass/vol ume] by Automated count Erythrocy 82.2 - fl Normal No Sep 17 te mean 97.8 informati 2016 1:15 corpuscul on in PM ar volume source [Entitic data volume] by Automated count Monocytes 0.1 - 1.0 K/mm3 Normal No Sep 17 informati 2016 1:15 [#/volume on in PM ] in source Blood by data Automated count Monocytes 1.7 - 9.3 % Normal No Sep 17 / informati 2016 1:15 leukocyte on in PM s in source Blood by data Automated count Platelet 7.4 - fl Normal No Sep 17 mean 10.4 informati 2016 1:15 volume on in PM [Entitic source volume] data in Blood by Automated count Platelets 142 - 424 K/mm3 Normal No Sep 17 informati 2016 1:15 [#/volume on in PM ] in source Blood data Erythrocy 4.2 - 5.4 M/mm3 Normal No Sep 17 lance informati 2016 1:15 [#/volume on in PM ] in source Amniotic data fluid Erythrocy 11.5 - % Normal No Sep 17 te 17.5 informati 2016 1:15 distribut on in PM ion width source [Entitic data volume] by Automated count Leukocyte 4.8 - K/MM3 Normal No Sep 17 s 10.8 informati 2016 1:15 [#/volume on in PM ] in source Blood data PAIN MGMT DRUG SCREEN Observa Value Referen Units Interpr Notes Date tion ce etation Range TRICYCL NEG NEGATIV No Normal No Nov 3 IC (<300 E informa informa 2015 ANTIDEP ng/mL) tion in tion in 11:42 RESSANT source source AM S data data BARBITU NEG NEGATIV No Normal No Nov 3 RATES (<200 E informa informa 2015 ng/mL) tion in tion in 11:42 source source AM data data METHADO NEG NEGATIV No Normal No Nov 3 NE (<200 E informa informa 2015 ng/mL) tion in tion in 11:42 source source AM data data BENZODI NEG NEGATIV No Normal No Nov 3 AZEPINE (<150 E informa informa 2015 S ng/mL) tion in tion in 11:42 source source AM data data THC NEG NEGATIV No Normal No Nov 3 (MARIJU (<50 E informa informa 2015 ANDRE) ng/mL) tion in tion in 11:42 source source AM data data OPIATES POSITIV NEGATIV No Abnorma THRESHO Nov 3 E E informa l LD 2014 tion in LIMIT 11:42 source IS 100 AM data ng/mL AMPHETA NEG NEGATIV No Normal No Nov 3 MINES (<500 E informa informa 2015 ng/mL) tion in tion in 11:42 source source AM data data COCAINE NEG NEGATIV No Normal No Nov 3 (<150 E informa informa 2015 ng/mL) tion in tion in 11:42 source source AM data data PHENCYC NEG NEGATIV No Normal No Nov 3 LIDINE (<25 E informa informa 2015 ng/mL) tion in tion in 11:42 source source AM data data PROPOXY NEG NEGATIV No Normal No Nov 3 PHENE (<300 E informa informa 2015 ng/mL) tion in tion in 11:42 source source AM data data METHAMP NEG NEGATIV No Normal No Nov 3 HETAMIN (<500 E informa informa 2015 E ng/mL) tion in tion in 11:42 source source AM data data OXYCODO NEG NEGATIV No Normal No Nov 3 NE (<100 E informa informa 2015 ng/mL) tion in tion in 11:42 source source AM data data BUPRENO NEG NEGATIV No Normal No Nov 3 RPHINE (<10 E informa informa 2015 ng/mL) tion in tion in 11:42 source source AM data data PAIN MGMT DRUG SCREEN Observa Value Referen Units Interpr Notes Date tion ce etation Range TRICYCL NEG NEGATIV No Normal No March 14 IC (<300 E informa informa 2015 ANTIDEP ng/mL) tion in tion in 12:37 RESSANT source source PM S data data BARBITU NEG NEGATIV No Normal No March 14 RATES (<200 E informa informa 2015 ng/mL) tion in tion in 12:37 source source PM data data METHADO NEG NEGATIV No Normal No March 14 NE (<200 E informa informa 2015 ng/mL) tion in tion in 12:37 source source PM data data BENZODI POSITIV NEGATIV No Abnorma THRESHO April 10 AZEPINE E E informa l LD 2014 S tion in LIMIT 12:37 source IS 150 PM data ng/mL THC NEG NEGATIV No Normal No March 14 (MARIJU (<50 E informa informa 2015 ANDRE) ng/mL) tion in tion in 12:37 source source PM data data OPIATES POSITIV NEGATIV No Abnorma THRESHO March 14 E E informa l LD 2014 tion in LIMIT 12:37 source IS 100 PM data ng/mL AMPHETA NEG NEGATIV No Normal No March 14 MINES (<500 E informa informa 2015 ng/mL) tion in tion in 12:37 source source PM data data COCAINE NEG NEGATIV No Normal No March 14 (<150 E informa informa 2015 ng/mL) tion in tion in 12:37 source source PM data data PHENCYC NEG NEGATIV No Normal No April 10 LIDINE (<25 E informa informa 2014 ng/mL) tion in tion in 12:37 source source PM data data PROPOXY NEG NEGATIV No Normal No April 10 PHENE (<300 E informa informa 2015 ng/mL) tion in tion in 12:37 source source PM data data METHAMP NEG NEGATIV No Normal No April 10 HETAMIN (<500 E informa informa 2015 E ng/mL) tion in tion in 12:37 source source PM data data OXYCODO NEG NEGATIV No Normal No April 10 NE (<100 E informa informa 2014 ng/mL) tion in tion in 12:37 source source PM data data BUPRENO NEG NEGATIV No Normal No April 10 RPHINE (<10 E informa informa 2014 ng/mL) tion in tion in 12:37 source source PM data data PAIN MGMT DRUG SCREEN Observa Value Referen Units Interpr Notes Date tion ce etation Range TRICYCL NEG NEGATIV No Normal No Sep 25 IC (<300 E informa informa 2013 ANTIDEP ng/mL) tion in tion in 1:44 PM RESSANT source source S data data BARBITU NEG NEGATIV No Normal No Sep 25 RATES (<200 E informa informa 2013 ng/mL) tion in tion in 1:44 PM source source data data METHADO NEG NEGATIV No Normal No Sep 25 NE (<200 E informa informa 2013 ng/mL) tion in tion in 1:44 PM source source data data BENZODI POSITIV NEGATIV No Abnorma THRESHO Oct 22 AZEPINE E E informa l LD 2013 S tion in LIMIT 1:44 PM source IS 150 data ng/mL THC NEG NEGATIV No Normal No Sep 25 (MARIJU (<50 E informa informa 2013 ANDRE) ng/mL) tion in tion in 1:44 PM source source data data OPIATES POSITIV NEGATIV No Abnorma THRESHO Oct 22 E E informa l LD 2013 tion in LIMIT 1:44 PM source IS 100 data ng/mL AMPHETA NEG NEGATIV No Normal No Sep 25 MINES (<500 E informa informa 2014 ng/mL) tion in tion in 1:44 PM source source data data COCAINE NEG NEGATIV No Normal No Sep 25 (<150 E informa informa 2013 ng/mL) tion in tion in 1:44 PM source source data data PHENCYC NEG NEGATIV No Normal No Sep 25 LIDINE (<25 E informa informa 2013 ng/mL) tion in tion in 1:44 PM source source data data PROPOXY NEG NEGATIV No Normal No Sep 25 PHENE (<300 E informa informa 2013 ng/mL) tion in tion in 1:44 PM source source data data METHAMP NEG NEGATIV No Normal No Sep 25 HETAMIN (<500 E informa informa 2013 E ng/mL) tion in tion in 1:44 PM source source data data OXYCODO NEG NEGATIV No Normal No Sep 25 NE (<100 E informa informa 2013 ng/mL) tion in tion in 1:44 PM source source data data BUPRENO NEG NEGATIV No Normal No Sep 25 RPHINE (<10 E informa informa 2013 ng/mL) tion in tion in 1:44 PM source source data data PAIN MGMT DRUG SCREEN Observa Value Referen Units Interpr Notes Date ti ce etation Range ADULTER TNP NEGATIV No Normal UNABLE April 16 ANT E informa TO READ 2014 OXIDANT tion in 3:16 PM S source ADULTAC data HECK STRIP BECAUSE OF COLOR OF UNINE-- - 4 1516 ---ADUL TERANT OXID previou sly reporte d as:Test not perform ed ADULTER TNP >=20 mg/dL Normal UNABLE April 16 ANTS mg/dL TO READ 2013 URINE 3:17 PM CREATIN ADULTAC INE HECK STRIP BECAUSE OF COLOR OF URINE-- - 4 1517 ---UR CREATIN INE previou sly reporte d as:Test not perform ed mg/dL PAIN MGMT DRUG SCREEN Observa Value Referen Units Interpr Notes Date tion ce etation Range TRICYCL NEG NEGATIV No Normal No Nov 12 IC (<300 E informa informa 2012 ANTIDEP ng/mL) tion in tion in 3:07 PM RESSANT source source S data data BARBITU NEG NEGATIV No Normal No Nov 12 RATES (<200 E informa informa 2013 ng/mL) tion in tion in 3:07 PM source source data data METHADO NEG NEGATIV No Normal No Nov 12 NE (<200 E informa informa 2012 ng/mL) tion in tion in 3:07 PM source source data data BENZODI POSITIV NEGATIV No Abnorma THRESHO Sep 12 AZEPINE E E informa l LD 2012 S tion in LIMIT 3:07 PM source IS 150 data ng/mL THC NEG NEGATIV No Normal No Nov 12 (MARIJU (<50 E informa informa 2013 ANDRE) ng/mL) tion in tion in 3:07 PM source source data data OPIATES POSITIV NEGATIV No Abnorma THRESHO Sep 12 E E informa l LD 2012 tion in LIMIT 3:07 PM source IS 100 data ng/mL AMPHETA NEG NEGATIV No Normal No Nov 12 MINES (<500 E informa informa 2012 ng/mL) tion in tion in 3:07 PM source source data data COCAINE NEG NEGATIV No Normal No Nov 12 (<150 E informa informa 2012 ng/mL) tion in tion in 3:07 PM source source data data PHENCYC NEG NEGATIV No Normal No Nov 12 LIDINE (<25 E informa informa 2012 ng/mL) tion in tion in 3:07 PM source source data data PROPOXY NEG NEGATIV No Normal No Nov 12 PHENE (<300 E informa informa 2012 ng/mL) tion in tion in 3:07 PM source source data data METHAMP NEG NEGATIV No Normal No Nov 12 HETAMIN (<500 E informa informa 2013 E ng/mL) tion in tion in 3:07 PM source source data data OXYCODO NEG NEGATIV No Normal No Nov 12 NE (<100 E informa informa 2012 ng/mL) tion in tion in 3:07 PM source source data data BUPRENO NEG NEGATIV No Normal No Nov 12 RPHINE (<10 E informa informa 2012 ng/mL) tion in tion in 3:07 PM source source data data PAIN MGMT DRUG SCREEN Observa Value Referen Units Interpr Notes Date tion ce etation Range TRICYCL NEG NEGATIV No Normal No Oct 29 IC (<300 E informa informa 2013 ANTIDEP ng/mL) tion in tion in 5:02 PM RESSANT source source S data data BARBITU NEG NEGATIV No Normal No Oct 29 RATES (<200 E informa informa 2013 ng/mL) tion in tion in 5:02 PM source source data data METHADO NEG NEGATIV No Normal No Oct 29 NE (<200 E informa informa 2013 ng/mL) tion in tion in 5:02 PM source source data data BENZODI POSITIV NEGATIV No Abnorma THRESHO Sep 25 AZEPINE E E informa l LD 2012 S tion in LIMIT 5:02 PM source IS 150 data ng/mL THC NEG NEGATIV No Normal No Oct 29 (MARIJU (<50 E informa informa 2013 ANDRE) ng/mL) tion in tion in 5:02 PM source source data data OPIATES POSITIV NEGATIV No Abnorma THRESHO Sep 25 E E informa l LD 2012 tion in LIMIT 5:02 PM source IS 100 data ng/mL AMPHETA NEG NEGATIV No Normal No Oct 29 MINES (<500 E informa informa 2013 ng/mL) tion in tion in 5:02 PM source source data data COCAINE NEG NEGATIV No Normal No Oct 29 (<150 E informa informa 2012 ng/mL) tion in tion in 5:02 PM source source data data PHENCYC NEG NEGATIV No Normal No Oct 29 LIDINE (<25 E informa informa 2013 ng/mL) tion in tion in 5:02 PM source source data data PROPOXY NEG NEGATIV No Normal No Oct 29 PHENE (<300 E informa informa 2013 ng/mL) tion in tion in 5:02 PM source source data data METHAMP NEG NEGATIV No Normal No Oct 29 HETAMIN (<500 E informa informa 2013 E ng/mL) tion in tion in 5:02 PM source source data data OXYCODO NEG NEGATIV No Normal No Oct 29 NE (<100 E informa informa 2013 ng/mL) tion in tion in 5:02 PM source source data data BUPRENO NEG NEGATIV No Normal No Oct 29 RPHINE (<10 E informa informa 2013 ng/mL) tion in tion in 5:02 PM source source data data PAIN MGMT DRUG SCREEN Observa Value Referen Units Interpr Notes Date tion ce etation Range ADULTER NEGATIV NEGATIV No Normal No March 8 ANT E E informa informa 2013 OXIDANT tion in tion in 12:21 S source source PM data data ADULTER 20 >=20 mg/dL Normal No March 8 ANTS mg/dL informa 2012 URINE tion in 12:21 CREATIN source PM INE data ADULTER NEG <200 mcg/mL Normal No March 8 ANTS mcg/dL informa 2012 NITRITE tion in 12:21 source PM data ADULTER NEGATIV NEGATIV No Normal No March 8 ANTS E E informa informa 2012 GLUTARA tion in tion in 12:21 LDEHYDE source source PM data data ADULTER 9.0 4 - 10 No Normal No March 8 ANT pH informa informa 2013 tion in tion in 12:21 source source PM data data ADULTER NEGATIV NEGATIV No Normal No March 8 ANT E E informa informa 2013 CHROMAT tion in tion in 12:21 E source source PM data data PAIN MGMT DRUG SCREEN Observa Value Referen Units Interpr Notes Date tion ce etation Range CALL RESULTS TO MARLEN BUX TYSHAWN ADULTER NEGATIV NEGATIV No Normal No Apr 3 ANT E E informa informa 2013 OXIDANT tion in tion in 2:14 PM S source source data data ADULTER 20 >=20 mg/dL Normal No Apr 3 ANTS mg/dL informa 2013 URINE tion in 2:14 PM CREATIN source INE data ADULTER NEG <200 mcg/mL Normal No Apr 3 ANTS mcg/dL informa 2013 NITRITE tion in 2:14 PM source data ADULTER NEGATIV NEGATIV No Normal No Apr 3 ANTS E E informa informa 2013 GLUTARA tion in tion in 2:14 PM LDEHYDE source source data data ADULTER 9.0 4 - 10 No Normal No Apr 3 ANT pH informa informa 2013 tion in tion in 2:14 PM source source data data ADULTER NEGATIV NEGATIV No Normal No Apr 3 ANT E E informa informa 2013 CHROMAT tion in tion in 2:14 PM E source source data data PAIN MGMT DRUG SCREEN Observa Value Referen Units Interpr Notes Date tion ce etation Range TRICYCL NEG NEGATIV No Normal No Feb 4 IC (<300 E informa informa 2012 ANTIDEP ng/mL) tion in tion in 11:51 RESSANT source source AM S data data BARBITU NEG NEGATIV No Normal No Feb 4 RATES (<200 E informa informa 2013 ng/mL) tion in tion in 11:51 source source AM data data METHADO NEG NEGATIV No Normal No Feb 4 NE (<200 E informa informa 2013 ng/mL) tion in tion in 11:51 source source AM data data BENZODI POSITIV NEGATIV No Abnorma THRESHO Feb 4 AZEPINE E E informa l LD 2013 S tion in LIMIT 11:51 source IS 150 AM data ng/mL THC NEG NEGATIV No Normal No Feb 4 (MARIJU (<50 E informa informa 2012 ANDRE) ng/mL) tion in tion in 11:51 source source AM data data OPIATES NEG NEGATIV No Normal No Feb 4 (<100 E informa informa 2013 ng/mL) tion in tion in 11:51 source source AM data data AMPHETA NEG NEGATIV No Normal No Feb 4 MINES (<500 E informa informa 2012 ng/mL) tion in tion in 11:51 source source AM data data COCAINE NEG NEGATIV No Normal No Feb 4 (<150 E informa informa 2013 ng/mL) tion in tion in 11:51 source source AM data data PHENCYC NEG NEGATIV No Normal No Feb 4 LIDINE (<25 E informa informa 2013 ng/mL) tion in tion in 11:51 source source AM data data PROPOXY NEG NEGATIV No Normal No Feb 4 PHENE (<25 E informa informa 2013 ng/mL) tion in tion in 11:51 source source AM data data METHAMP NEG NEGATIV No Normal No Feb 4 HETAMIN (<500 E informa informa 2013 E ng/mL) tion in tion in 11:51 source source AM data data OXYCODO POSITIV NEGATIV No Abnorma THRESHO Feb 4 NE E E informa l LD 2012 tion in LIMIT 11:51 source IS 100 AM data ng/mL BUPRENO NEG NEGATIV No Normal No Feb 4 RPHINE (<10 E informa informa 2013 ng/mL) tion in tion in 11:51 source source AM data data [id number] Observa Value Referen Units Interpr Notes Date tion ce etation Range TEXT Ben No No No No Jun 2 DIAGNOS informa informa informa informa 2011 IS [employer] tion in tion in tion in tion in 2:47 PM BATTERY l source source source source Health[facility] data data data data MRMCDep artment of Diagnos [id number] [place], [place] [phone] Patient : Sex: Age: Unit Number: , HAYDEN Yousif F 33 [id number] radha Chowdhury an: Status: Date of : Account Number: STEPHANIA VERNON MD ADM IN 978 [id number] nathanael Chowdhury an: Locatio n: Room Number: Date of Exam:CO Josey LEE MD [id number] INE [id number] 2REASON FOR EXAM: PAIN PUMPREA SON FOR VISIT: PAIN PUMPACC ESSION # [id number] __Fluor oscopy was provide d for Dr. Nancy anne . There is nocharg e for this dictati on. This is for hospita l billing purpose s only.Rashmi metz n:Fluor oscopy provide d. El ectroni hali signed by: ANNETTE SMITH ate: 2Time: 14:47__ ___RASHIDHU UA Arnel RIVERA MDDicta oumar: 2 1447Sig william : 2 1447 [id number] Observa Value Referen Units Interpr Notes Date tion ce etation Range TEXT Deposit No No No No Jun 14 DIAGNOS informa informa informa informa 2011 IS [employer] tion in tion in tion in tion in 1:59 PM BATTERY l source source source source HealthE data data data data [facility] [id number] [place] [phone] Patient : Sex: Age: Unit Number: EE M F 33 [id number] [id number] radha Physicjono an: Status: Date of : Account Number: MARLEN PACHECO MD ADM IN 978 [id number] nathanael Chowdhury an: Locatio n: Room Number: Date of Exam:CO Josey LEE MD [facility] EA E204 2REASON FOR EXAM: PAIN PUMP TRIALRE ASON FOR VISIT: PAIN PUMP TRIALAC CESSION # [id number] __Fluor oscopy was provide d for Dr. Pacheco . There is no charge forthis dictati on. This is for hospita l billing purpose s only.Rashmi metz n:Fluor oscopy provide d. El ectroni hali signed by: ANNETTE Seals PHELPSD ate: 2Time: 14:00__ ___ALEX Seals RIVERA MDDicta oumar: 2 1359Sig william : 2 1400 LSWO Observa Value Referen Units Interpr Notes Date tion ce etation Range TEXT Deposit No No No No May 16 DIAGNOS informa informa informa informa 2011 IS [employer] tion in tion in tion in tion in 12:21 BATTERY l source source source source HealthE data data data data [facility]ep artment of Diagnos [id number] [place], [place] [phone] Patient : Sex: Age: Unit Number: VITORGIOVANY HAYDEN F 33 [id number] 410Orde radha Physici an: Status: Date of : Account Number: MARLEN PACHECO MD REG CLI 978 [id number] nathanael Chowdhury an: Locatio n: Room Number: Date of Exam:Josey BOWEN MD EMRI 2REASON FOR EXAM: 724.1, 724.2, 729.5RE ASON FOR VISIT: 724.1, 724.2, 729.5AC CESSION # [id number] __MRI LUMBAR SPINE WITHOUT IV GADOLIN IUMBack painMul tiplana r/Multi pulse sequenc e imaging of the lumbar spine wasperf ormed without IV gadolin ium on the 1.5Tesl a unit.Bi lateral pars defects are suggest ed at L5. Grade 1antero listhes is of L5 on S1 is noted. Otherwi se, normalp osterio r bony lumbar alignme nt is maintai william. Conus is ofnorma l signal and girth and termina lance at L1.At L5/S1, again patient has what appears to be L5 pars defects with grade 1 anterol isthesi s. Patient is status post A2yxvsu ectomy. No signifi cant central stenosi s is present . Facetar thritis and a broad-b ased disc bulge are present but nosigni ficant central stenosi s is appreci ated. Mild neuralf oramina l narrowi ng is seen bilater ally at this level.A t L4/5, degener ative endplat e changes are noted along with abroad- based disc bulge. Facet arthrit is is present . Minimal central stenosi s and mild neural foramin al narrowi ng is seenbil aterall y.At L3/4, facet arthrit is and a broad-b ased disc bulge arepres ent. Moderat e central stenosi s and minimal neural foramin alnarro wing is seen.Im pressio n:Mild to moderat e multile jennifer degener ative disc disease andpost surgica l changes as describ ed above._ __Elect ronical ly signed by: TELLO Davalos te: 2Time: 13:03__ ___JORGE L TOM MDDicta oumar: 2 1221Sig william : 2 1304 TSWO Observa Value Referen Units Interpr Notes Date tion ce etation Range TEXT Ben No No No No May 16 DIAGNOS informa informa informa informa 2011 IS [employer] tion in tion in tion in tion in 11:51 BATTERY l source source source source [facility] data data data data [facility]ITAL[facility] art[facility] Diagnos [id number] [facility] LISETTE johnson [phone] Patient : Sex: Age: Unit Number: GIOVANY ADLER 33 [id number] ring Physici an: Status: Date of : Account Number: MARLEN PACHECO MD REG CLI 978 [id number] nathanael Physici an: Locatio n: Room Number: Date of Exam:CO Josey LEE MD EMRI 2REASON FOR EXAM: 724.1, 724.2, 729.5RE ASON FOR VISIT: 724.1, 724.2, 729.5AC CESSION # [id number] __MRI thoraci c spine without contras t.Indic ation: Back pain.Te chnique : Multipl yariel, multi-s equence MRI images of thethor acic spine were obtaine d without intrave nous contras t.Stuart rison: None.Fi ndings: The thoraci c vertebr ae maintai n normal height, alignme nt, andsign al intensi ty. The thoraci c spinal cord has normal caliber and signal intensi ty. There are no epidura l masses. Thepara spinal soft tissues are normal. There is mild multile jennifer disk desicca tion and loss of heightw ithout disk bulge or protrus ion. There is no spinal canalst enosis or neural foramin al narrowi ng.Impr ession: Mild multile jennifer degener ative disk disease without spinal canalst enosis or neural foramin al narrowi ng.____ E ramona cowan signed by: RIGO HALL ate: 2Time: 11:53__ ___RIGO PAINTING MDDicta oumar: 2 1151Sig william : 2 1154
--- OUTSIDE RECORDS SUMMARY | 2017-09-19 07:54 | External Medical Summary Rpt | CCD ---
Author Author TIMUR Address Unknown Phone [email or web address] Purpose Continuity of Care Document - through 2016
--- OUTSIDE RECORDS SUMMARY | 2017-09-19 07:54 | External Medical Summary Rpt | CCD ---
Demographics Preferred Language [place] Marital Status Unknown Restoration Affiliation Unknown Race Unknown Ethnic Group Unknown Author Author , ROSANNA MARTE Address Unknown Phone Immunization Unable to retrieve immunization data due to connection failure with Immunization Registry. Please try again later.
--- OUTSIDE RECORDS SUMMARY | 2017-09-19 07:54 | External Medical Summary Rpt ---
[...] in 11:51 source source AM data data [id number] Observa Value Referen Units Interpr Notes Date tion ce etation Range TEXT Ben No No No No Jun 2 DIAGNOS informa informa informa informa 2011 IS [place] tion in tion in tion in tion in 2:47 PM BATTERY l source source source source [facility] data data data data [facility] art[facility] Diagnos [id number] [place], [place] [phone] Patient : Sex: Age: Unit Number: , HAYDEN Yousif F 31 [id number] radha Chowdhury an: Status: Date of : Account Number: STEPHANIA VERNON MD ADM IN 978 [id number] nathanael Chowdhury an: Locatio n: Room Number: Date of Exam:CO Josey LEE MD [id number] INE [id number] 2REASON FOR EXAM: PAIN PUMPREA SON FOR VISIT: PAIN PUMPACC ESSION # [id number] __Fluor oscopy was provide d for Dr. Nancy anne . There is nocharg e for this dictati on. This is for hospita l billing purpose s only.Rashmi metz n:Fluor oscopy provide d. El ectroni hali signed by: ANNETTE SMITH ate: 2Time: 14:47__ ___RASHIDHU UA Arnel RIVERA MDDicta oumar: 2 1447Sig william : 2 1447 [id number] Observa Value Referen Units Interpr Notes Date tion ce etation Range TEXT Samaria No No No No Jun 14 DIAGNOS informa informa informa informa 2011 IS [place] tion in tion in tion in tion in 1:59 PM BATTERY l source source source source [facility] data data [facility] [id number] [place] [phone] Patient : Sex: Age: Unit Number: EE M F 31 [id number] radha Physicjono an: Status: Date of : Account Number: MARLEN PACHECO MD ADM IN 978 [id number] nathanael Chowdhury an: Locatio n: Room Number: Date of Exam:CO Josey LEE MD [facility] EA [id number] 2REASON FOR EXAM: PAIN PUMP TRIALRE ASON FOR VISIT: PAIN PUMP TRIALAC CESSION # [id number] __Fluor oscopy was provide d [...] Notes Date tion ce etation Range TEXT Samaria No No No No May 16 DIAGNOS informa informa informa informa 2011 IS [place] tion in tion in tion in tion in 12:21 BATTERY l source source source source HealthE data data data data MRMCDep artment of Diagnos [id number] [place], [place] [phone] Patient : Sex: Age: Unit Number: VITORGIOVANY HAYDEN F 31 [id number] radha Physici an: Status: Date of : Account Number: MARLEN PACHECO MD REG CLI 978 [id number] nathanael Chowdhury an: Locatio n: Room Number: Date of Exam:Josey BOWEN MD EMRI 2REASON FOR EXAM: 724.1, 724.2, 729.5RE ASON FOR VISIT: 724.1, 724.2, 729.5AC CESSION # [id number] __MRI LUMBAR SPINE WITHOUT IV [...] anterol isthesi s. Patient is status post [id number] ectomy. No signifi cant central stenosi s [...] 11:51 BATTERY l source source source source [facility] data data data data [facility] [id number] [facility] LISETTE johnson [phone] Patient : Sex: Age: Unit Number: GIOVANY ADLER 31 [id number] ring Physici an: Status: Date of : Account Number: MARLEN PACHECO MD REG CLI 978 [id number] nathanael Physici an: Locatio n: Room Number: Date of Exam:CO Josey LEE MD EMRI 2REASON FOR EXAM: 724.1, 724.2, 729.5RE ASON FOR VISIT: 724.1, 724.2, 729.5AC CESSION # [id number] __MRI thoraci c spine without [...]
--- OUTSIDE RECORDS SUMMARY | 2017-09-19 07:54 | External Medical Summary Rpt | CCD ---
Author Author TIMUR Address Unknown Phone [email or web address] Purpose Continuity of Care Document - through 2016
--- NOTE | 2017-09-19 07:55 | Emergency Room Report ---
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 N Clinical Suspician of Infection? N Mental Status: 1 - Regular (Normal Baseline) Sepsis Risk:Low Sepsis Risk Have you (or family members/close friends) recently traveled outside the [place]? N If Yes, where/when: Have you had exposure to infectious disease within the past month? N TB? Other? Specify: Source patient, RN notes reviewed, family, RN/MD Exam Limitations no limitations Comment This is a 37-year-old feel patient presenting to the emergency room with RIGHT lower quadrant abdominal pain, nausea, vomiting and diarrhea for the past 2 weeks. She was seen in the emergency room Tuesday, September 27, but she LEFT AGAINST MEDICAL ADVICE, because "her boyfriend had to go to work", prior to us being able to send her for a CT scan abdomen and pelvis. Patient stated that she had a Dilaudid pump but it was removed in November 2016 because of infection. Patient advised that she states has been on no pain medication since then. Denies alcohol use, acknowledges marijuana use, denies any street/illicit drug abuse. ALLERGIES Coded Allergies: hydrocodone (Mild, 09/17/17) prednisone (Mild, 09/17/17) promethazine (From PHENERGAN) (Mild, 09/17/17) Home Medications Reported Medications Diazepam (Valium) 5 MG PO Q8 (Maribel SOTO,Kannan Rodriguez) History Medical History General CAD? No Angina: No [place]: No Hypertension? Yes Hyperlipidemia? No CHF? No DVT? Yes PE? Yes COPD? No Asthma? No Anemia? Yes GERD? Yes Gastric ulcers? No GI Bleed? No Hernia? No Thyroid Problems? Yes Hypothyroidism? No CVA? No Seizures? No Diabetes? No Renal Insuffiency? No End Stage Renal Disease? No UTI? No Stones? No BPH? No GB Disease: No Nephritic Syndrome? No Asplenia? No Hepatitis? Yes Sickle Cell Disease? No Arthritis? Yes Migraines? Yes Cataracts? No Glaucoma? No MRSA? Yes HIV? No TB? No Anxiety? Yes Depression? Yes Cancer? No More? 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 N/A Social History Smoking Hx Smoker: Current Every Day Smoker Tobacco: Yes Type Cigarettes Packs/day 1 1/2 - 2 Packs Alcohol Alcohol: No (Kannan López MD) Review of Systems All Other Systems Reviewed and Negative Gastrointestinal abdominal pain, diarrhea, nausea, vomiting (Kannan López MD) Physical Exam Vital Signs Vital Signs Date Time Temp Pulse Resp B/P Pulse O2 O2 Flow FiO2 Ox Delivery Rate 09/19 0946 65 16 142/74 98 09/19 0840 16 09/19 0837 67 16 156/97 98 09/19 0734 98.4 85 16 98 General Appearance normal appearance, WD/WN, mild distress Respiratory Status Yes: trachea midline, chest symmetrical, non tender chest. No: respiratory distress. Lung Sounds bilateral: normal breath sounds, lungs clear. 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 No Comment 0800am-patient turned over to Dr. Bertrand, pending workup and clinical reevaluation. Results/Orders Laboratory Tests 09/19/17 0835: Opiates Screen NEGATIVE, Urine Methadone Screen NEGATIVE, Barbiturates NEGATIVE, Phencyclidine Screen NEGATIVE, Amphetamines Screen NEGATIVE, Benzodiazepines Screen NEGATIVE, Cocaine Screen POSITIVE H, Marijuana (THC) Screen POSITIVE H, Urine Color YELLOW, Urine Appearance CLOUDY, Urine pH 7.0, Ur Specific [place] 1.015, Urine Protein TRACE H, Urine Ketones NEGATIVE, Urine Blood TRACE-INTACT, Urine Nitrate NEGATIVE, Urine Bilirubin NEGATIVE, Urine Urobilinogen 1.0, Ur Leukocyte Esterase 3+ H, Urine RBC OCC, Urine WBC 5-10, Ur Squamous Epith Cells 10-20, Urine Bacteria 3+, Hyaline Casts OCC, Urine Mucus 1+, Urine Glucose NEGATIVE 09/19/17 0750: Sodium 136, Potassium 3.0 L, Chloride 99, Carbon Dioxide 26, BUN 13, Creatinine 1.1 H, Estimated Creat Clear 73, Estimated GFR (MDRD) 55 L, Glucose 120 H, Calcium 9.5, Total Bilirubin 0.6, AST 13 L, ALT 16, Alkaline Phosphatase 100, Total Protein 8.6 H, Albumin 4.3, Globulin 4.3 H, Albumin/Globulin Ratio 1.0 L, Amylase 64, Lipase 137, WBC 9.6, RBC 4.78, Hgb 14.4, Hct 42.6, MCV 89.1, RDW 12.9, Plt Count 329, MPV 7.9, Gran % 74.7, Gran # 7.2, Lymphocytes % 19.2, Monocytes % 5.3, Eosinophils % 0.3, Basophils % 0.4, Lymphocytes # 1.9, Monocytes # 0.5, Eosinophils # 0.0, Basophils # 0.0, PUBS MCHC 33.8, MCH 30.1 Current Medication Orders Sig/Derik Start time Last Medication Dose Route Stop Time Status Admin Al Hydroxide/Mg 30 ML ONCE ONE 09/19 1000 AC Hydroxide PO 09/19 1001 Ondansetron HCl 4 MG ONCE ONE 09/19 945 DC 09/19 IV 09/19 0946 0945 Ondansetron HCl 0 .STK-MED ONE 09/19 945 DC .ROUTE Ondansetron HCl 0 .STK-MED ONE 09/19 928 DC .ROUTE Ondansetron HCl 4 MG ONCE ONE 09/19 0915 DC 09/19 IV 09/19 0916 0929 Lactated Ringer's 1,000 ML .Q1H1M 09/19 845 DC 09/19 IV 09/19 945 0840 Sodium Chloride 10 ML PRN PRN 09/19 845 AC IV 09/20 0838 Ketorolac 0 .STK-MED ONE 09/19 0839 DC Tromethamine .ROUTE Ketorolac 30 MG ONCE ONE 09/19 800 DC 09/19 Tromethamine IV 09/19 0801 0840 Promethazine HCl 12.5 MG ONCE ONE 09/19 08 CANr IV 09/19 801 Sodium Chloride 25 ML ONCE ONE 09/19 800 CAN IV 09/19 0814 Sodium Chloride 10 ML PRN PRN 09/19 745 AC IV 09/20 745 Orders Procedure Date/time Status DIET-NOTHING BY MOUTH 09/19 L Active CULTURE, URINE 09/19 0835 Active IV SALINE LOCK 09/[address] ABD/PELVIS REQ 09/19 744 Complete DRUG ABUSE SCREEN (TRIAGE) 09/19 744 Complete URINALYSIS/COMPLETE 09/19 743 Complete LIPASE 09/19 743 Complete CBC WITH AUTO DIFF 09/19 743 Complete CHEM 12 PROFILE 09/19 743 Complete AMYLASE 09/[address] ABD & PELVIS W/O CONTRAST 09/19 UNK Active XRAY/CT/US XRAY/CT/US CT abdomen CT interpretation by reviewed by me (report reviewed) Time results known: 915 CT Results normal/NAD Progress ED Progress Notes 1 Date 09/19/17 Time 0916 Comment Transfer of care from Dr. Hernandez at 0800; UDS positive for cocaine and mj; is on Benzos but UDS negative for Benzos. Hx hep C. Was seen in ED two days ago and left AMA w/o CT scan being done. Labs and vitals normal. Patient with n/v, Zofran IV, symptomatically is likely in withdrawal. Chart from ED from Dr. Tovar reviewed. Dr. Hernandez's note reviewed as well as labs and CT result. ED Progress Notes 2 Date 09/19/17 Time 0938 Comment Patient states allergy to Phenergan, will redose with Zofran prior to d/c. ED Progress Notes 3 Date 09/19/17 Time 0954 Comment keeping down PO ice chips, asking for Maalox for "heartburn" (Jerzy SOTO, Radha Yousif) Departure Departure Time of Disposition 0800 Condition STABLE ED Critical Care Critical Care No (Maribel SOTO,Kannan Rodriguez) Departure Time of Disposition 54 Disposition DC Home or Self Care(routine) Clinical Impression Primary Impression: RLQ abdominal pain Secondary Impressions: Vomiting Qualifiers: Vomiting type: unspecified Vomiting Intractability: non-intractable Nausea presence: with nausea Qualified Code: R11.2 - Nausea with vomiting, unspecified Patient Instructions DI for Vomiting -- Adult Additional Instructions See family doctor of choice on list provided for follow up. CT and labs normal today. Rx Zofran for n/v, clear liquids for 24 hours then advance as tolerated. Discharge Counseling Counseled pt/family regarding diagnosis, test results, medications/RX, home care, follow up needs Prescriptions Current Visit Scripts Ondansetron (Zofran 4MG Odt) 4 MG PO Q6HP PRN NAUSEA AND VOMITING #15 ODT ED Critical Care Critical Care No (Jerzy SOTO, Radha Yousif) at 0802 at 0954
[2017-09-19 08:10] LABS: HEMOGLOBIN 14.4 g/dL (12.2-16.2); LYMPH # 1.9 K/mm3 (0.7-4.5); LYMPH % 19.2 % (10-50.0)
[2017-09-19 08:40] LABS: URINE BILIRUBIN - DIPSTICK NEGATIVE (NEG); URINE BLOOD TRACE-INTACT (NEG)
[2017-09-19 08:51] LABS: AMPHETAMINES/METAMPHETAMINES NEGATIVE ng/mL (<1000)
[2017-09-19] MEDS ORDERED: ZOFRAN ODT4 MG PO (09:39)
[2017-09-19 10:09] VITALS: BP 142/74
--- NOTE | 2017-09-19 20:52 | RADIOLOGY REPORT PS360 ---
CT ABD PELVIS W/O CONTRAST HISTORY: RLQ PAIN RAD.TO LEFT LOWER BACK Patient Age: 37 years: Female Ordering Physician: Radha Bertrand MD TECHNIQUE: Helical CT scanning performed the abdomen and pelvis with no oral nor IV contrast. COMPARISON : No previous relevant studies FINDINGS Lung bases appear clear with no active disease mild hyperexpansion Abdomen/pelvis. Lack of oral and IV contrast decreases sensitivity. Liver, spleen, pancreas, adrenals unremarkable on these noncontrast studies Gallbladder. Unremarkable no calcified stones. No ductal dilatation. Kidneys. No urinary tract calculi nor obstruction slightly dilated appearance of both kidneys but no definitive mass. On this noncontrast study. Ureters unremarkable with no calculi or dilatation. Urinary bladder unremarkable. At the pelvis patient's uterus appears likely surgically removed. Mild residual fullness at the vaginal cuff. No no significant adnexal masses or findings. Postsurgical changes noted at pelvis. GI TRACT Large bowel. Colonic diverticulosis with a few scattered diverticuli most evident at the left colon & sigmoid colon. Upper normal wall thickening at the proximal sigmoid colon most likely reflects lack distention. I see no good evidence of of acute diverticulitis. Moderate gas is seen throughout large and small bowel with no bowel dilatation or obstruction. Few small air-fluid levels in small bowel. Unimpressive. Appendix normal. Distal ileum unremarkable. No free fluid no free air. No significant adenopathy at pelvis nor retroperitoneal. . Lumbar Previous discectomy with prominent laminectomy L4/5. Disc spacer devices in place at L4/5. Prominent facet hypertrophy and likely bone grafting at facets and posterior elements There is prominent grade 6.5 mm anterior grade 2 spondylolisthesis of L5 on S1. Pars defect present on the left but I. Prominent hypertrophic degenerative facet changes at lower 2 levels L-spine. Question if previous fixation screws at been removed from S1 accounting for what appears to be a residual tract here.. Surgical history correlation required. IMPRESSION: . No acute findings abdomen pelvis. . Hysterectomy. Mild fullness of the vaginal cuff likely within normal limits may be a likely reflects residual ovaries as well.
== END 2017-09-19 10:10 | disposition home or self-care (01) ==
LOC: ER 07:28
PROVIDERS: Emergency Medicine
DX: K73.9 Chronic hepatitis, unspecified (principal); Z79.899 Other long term (current) drug therapy
CPT/HCPCS: J2405